=== PATIENT | female | born 1935 | race Caucasian/White ===

== ENCOUNTER 2021-08-23 17:04 | Inpatient (IN) | payer OTHER ==
[2021-08-23 19:18] LABS: ACTIVATED PTT 49.8 SECONDS (25.2-36.5)
[2021-08-23 19:19] LABS: BASO % 0.3 % (0-2.0); EOS % 0.3 % (0-4.5); HEMATOCRIT 32.3 % (32.4-45.2); HEMOGLOBIN 10.9 GM/dL (10.7-15.3); LYMPH % 23.2 % (8-40); MCH 27.7 pg (25.7-33.7); MCHC 33.8 g/dl (32.0-36.0); MEAN CELL VOLUME 81.8 fl (80-96); MEAN PLT VOLUME 9.5 fl (7.5-11.1); MONO % 4.9 % (3.8-10.2); NEUT % 71.3 % (42.8-82.8); PLATELET COUNT 104 10^3/uL (134-434); RBC 3.95 M/mm3 (3.60-5.2); RDW 26.1 % (11.6-15.6); WHITE BLOOD COUNT 7.3 K/mm3 (4.0-10.0)
[2021-08-23 19:24] LABS: CHLORIDE 98 mmol/L (98-107); SODIUM 135 mmol/L (136-145)
[2021-08-23 19:26] LABS: CALCIUM 11.3 mg/dL (8.5-10.1)
[2021-08-23 19:27] LABS: ANION GAP 8 MMOL/L (8-16); CO2 29 mmol/L (21-32); GLUCOSE,RANDOM 136 mg/dL (74-106)
[2021-08-23 19:30] LABS: CREATININE 4.3 mg/dL (0.55-1.3); SGOT/AST 23 U/L (15-37); SGPT/ALT 25 U/L (13-61)
[2021-08-23 19:31] LABS: BILIRUBIN,TOTAL 0.5 mg/dL (0.2-1)
[2021-08-23 19:33] LABS: ALK PHOS 116 U/L (45-117)
[2021-08-23 19:40] LABS: PROTHROMBIN TIME (PATIENT) 100.5 SEC (9.7-13.0)
[2021-08-23 19:43] LABS: INR 8.41 (0.83-1.09)
[2021-08-23] MEDS ORDERED: SODIUM CHLORIDE 0.9% 1000 ML INFUS.BAG IV ONE (20:15)
[2021-08-23] MEDS: INSULIN SLIDING SCALE (NOVOLOG) 1 VIAL SQ SCH ×2 (20:50→23:36)
[2021-08-23 22:51] LABS: ANISOCYTOSIS 0; MACROCYTOSIS 0; PLATELET ESTIMATE DECREASED
[2021-08-23] MEDS ORDERED: ATORVASTATIN CA 80 MG TABLET (FP) ONE (23:22)
[2021-08-23] MEDS: ATORVASTATIN CA 80 MG TABLET (FP) PO SCH (23:35)
[2021-08-23] MEDS: DEXTROSE 5%-0.45% SALINE 1,000 ML IV SCH (23:35)
[2021-08-23] MEDS: ACETAMINOPHEN 325 MG TABLET (FP) PO SCH (23:36)
[2021-08-24] MEDS: INSULIN SLIDING SCALE (NOVOLOG) 1 VIAL SQ SCH ×6 (05:23→21:56)
[2021-08-24] MEDS: DEXTROSE 5%-0.45% SALINE 1,000 ML IV SCH (05:41)
[2021-08-24] MEDS: ACETAMINOPHEN 325 MG TABLET (FP) PO SCH ×3 (07:00→21:55)
[2021-08-24] MEDS ORDERED: DEXTROSE 5%-0.45% SALINE 1,000 ML IV SCH (08:48)
[2021-08-24] MEDS ORDERED: INSULIN (LEVEMIR) 100 UNITS/ML UNITS SQ SCH (09:00)
[2021-08-24] MEDS: CYANOCOBALAMIN 1,000 MCG TABLET (FP) PO SCH (09:55)
[2021-08-24 10:24] LABS: INR 4.49 (0.83-1.09)
[2021-08-24 10:26] LABS: CHLORIDE 103 mmol/L (98-107); SODIUM 134 mmol/L (136-145)
[2021-08-24 10:42] LABS: CALCIUM 10.5 mg/dL (8.5-10.1)
[2021-08-24 10:43] LABS: ANION GAP 8 MMOL/L (8-16); CO2 23 mmol/L (21-32); GLUCOSE,RANDOM 195 mg/dL (74-106); MAGNESIUM 2.1 mg/dL (1.8-2.4)
[2021-08-24 10:46] LABS: SGOT/AST 22 U/L (15-37)
[2021-08-24 10:47] LABS: SGPT/ALT 23 U/L (13-61); TOT PROT 6.2 g/dl (6.4-8.2)
[2021-08-24 10:48] LABS: BILIRUBIN,TOTAL 0.5 mg/dL (0.2-1)
[2021-08-24 10:51] LABS: ALK PHOS 110 U/L (45-117)
[2021-08-24 10:54] LABS: ALBUMIN 2.9 g/dl (3.4-5.0); BLOOD UREA NITROGEN 111.4 mg/dL (7-18); PHOSPHOROUS 0.6 mg/dL (2.5-4.9)
[2021-08-24] MEDS ORDERED: DEXTROSE IVPB ONE (12:12)
[2021-08-24] MEDS ORDERED: WATER IVPB ONE (12:12)
[2021-08-24] MEDS ORDERED: SODIUM PHOSPHATE IVPB ONE (12:12)
[2021-08-24 12:21] LABS: BASO % 0.5 % (0-2.0); EOS % 0.9 % (0-4.5); HEMOGLOBIN 10.3 GM/dL (10.7-15.3); MCH 27.6 pg (25.7-33.7); MCHC 33.3 g/dl (32.0-36.0); MEAN CELL VOLUME 83.1 fl (80-96); MEAN PLT VOLUME 9.5 fl (7.5-11.1); MONO % 8.8 % (3.8-10.2); NEUT % 56.8 % (42.8-82.8); PLATELET COUNT 86 10^3/uL (134-434); RBC 3.73 M/mm3 (3.60-5.2); RDW 26.6 % (11.6-15.6)
[2021-08-24] MEDS: SODIUM CHLORIDE 1,000 ML IV SCH (12:34)
[2021-08-24] MEDS: NAPH,MB-DB/K PH,MBDB POWDER PACKET PO SCH ×2 (12:39→21:56)
[2021-08-24] MEDS ORDERED: SODIUM PHOSPHATE - 30 MM in DEXTROSE 5%-WATER - 500 ML IVPB ONE (13:00)
[2021-08-24 13:27] LABS: EPI CELLS 3 /uL (0-25.1); HYALINE CASTS 0 /uL (0-3.1); URINE APPEARANCE CLEAR; URINE BACTERIA 107 /uL (0-1359); URINE BILIRUBIN NEGATIVE (NEGATIVE); URINE COLOR YELLOW; URINE GLUCOSE (UA) TRACE (NEGATIVE); URINE KETONE NEGATIVE (NEGATIVE); URINE LEUK ESTERASE 1+ (NEGATIVE); URINE NITRITE NEGATIVE (NEGATIVE); URINE PROTEIN TRACE (NEGATIVE); URINE RBC 14 /uL (0-23.9); URINE UROBILINOGEN 0.2 mg/dL (0.2-1.0); URINE WBC 24 /uL (0-25.8)
[2021-08-24] MEDS: INSULIN (LEVEMIR) 100 UNITS/ML UNITS SQ SCH (21:55)
[2021-08-24] MEDS: ATORVASTATIN CA 80 MG TABLET (FP) PO SCH (21:55)
[2021-08-25] MEDS: INSULIN SLIDING SCALE (NOVOLOG) 1 VIAL SQ SCH ×5 (01:56→19:22)
[2021-08-25] MEDS: SODIUM CHLORIDE 1,000 ML IV SCH ×2 (05:04→20:33)
[2021-08-25] MEDS: ACETAMINOPHEN 325 MG TABLET (FP) PO SCH ×3 (06:37→22:02)
[2021-08-25] MEDS: INSULIN (LEVEMIR) 100 UNITS/ML UNITS SQ SCH ×3 (06:37→22:02)
[2021-08-25] MEDS: NAPH,MB-DB/K PH,MBDB POWDER PACKET PO SCH ×2 (11:28→22:04)
[2021-08-25] MEDS: CYANOCOBALAMIN 1,000 MCG TABLET (FP) PO SCH (11:28)
[2021-08-25 11:43] LABS: BASO % 0.1 % (0-2.0); HEMATOCRIT 26.2 % (32.4-45.2); LYMPH % 2.8 % (8-40); MCH 22.6 pg (25.7-33.7); MCHC 30.6 g/dl (32.0-36.0); MEAN PLT VOLUME 9.2 fl (7.5-11.1); MONO % 7.6 % (3.8-10.2); NEUT % 89.5 % (42.8-82.8); PLATELET COUNT 213 10^3/uL (134-434); RBC 3.54 M/mm3 (3.60-5.2); RDW 19.8 % (11.6-15.6); WHITE BLOOD COUNT 17.7 K/mm3 (4.0-10.0)
[2021-08-25] MEDS ORDERED: DEXTROSE 50%-WATER 25 GM/50 ML DISP.SYRIN IVPUSH ONE (12:00)
[2021-08-25 12:06] LABS: CREATININE 1.6 mg/dL (0.55-1.3)
[2021-08-25 12:07] LABS: PHOSPHOROUS 4.4 mg/dL (2.5-4.9)
[2021-08-25 12:08] LABS: BILIRUBIN,TOTAL 0.5 mg/dL (0.2-1); TOT PROT 7.2 g/dl (6.4-8.2)
[2021-08-25] MEDS ORDERED: DEXTROSE 5%-0.45% SALINE 1,000 ML IV SCH (12:30)
[2021-08-25] MEDS ORDERED: DEXTROSE 50%-WATER 25 GM/50 ML DISP.SYRIN ONE (12:33)
[2021-08-25] MEDS: PANTOPRAZOLE SODIUM 40 MG VIAL IVPUSH SCH (12:36)
[2021-08-25] MEDS ORDERED: IRON SUCROSE INJECTION 200 MG in SODIUM CHLORIDE 90 ML IVPB ONE (13:25)
[2021-08-25 13:51] LABS: ALBUMIN 1.7 g/dl (3.4-5.0); CALCIUM 8.3 mg/dL (8.5-10.1)
[2021-08-25 13:58] LABS: BLOOD UREA NITROGEN 24.8 mg/dL (7-18)
[2021-08-25] MEDS ORDERED: INSULIN SLIDING SCALE (NOVOLOG) 1 VIAL SQ SCH (16:00)
[2021-08-25] MEDS ORDERED: SODIUM CHLORIDE 0.45% 1,000 ML IV SCH (16:15)
[2021-08-25] MEDS ORDERED: PT OWN MED DRAWER 7, Y5N ONE (18:20)
[2021-08-25] MEDS: AMINO ACIDS/PROTEIN HYDROLYS 30 ML LIQUID.PKT PO SCH (18:37)
[2021-08-25 19:49] LABS: BASO % 0.2 % (0-2.0); EOS % 0.9 % (0-4.5); HEMATOCRIT 27.7 % (32.4-45.2); HEMOGLOBIN 9.2 GM/dL (10.7-15.3); LYMPH % 25.1 % (8-40); MCH 27.2 pg (25.7-33.7); MCHC 33.1 g/dl (32.0-36.0); MEAN CELL VOLUME 82.1 fl (80-96); MEAN PLT VOLUME 9.2 fl (7.5-11.1); MONO % 5.6 % (3.8-10.2); NEUT % 68.2 % (42.8-82.8); PLATELET COUNT 80 10^3/uL (134-434); RBC 3.37 M/mm3 (3.60-5.2); RDW 26.5 % (11.6-15.6); WHITE BLOOD COUNT 6.2 K/mm3 (4.0-10.0)
[2021-08-25 19:57] LABS: INR 2.07 (0.83-1.09); PROTHROMBIN TIME (PATIENT) 24.4 SEC (9.7-13.0)
[2021-08-25 20:15] LABS: CREATININE 3.4 mg/dL (0.55-1.3)
[2021-08-25 20:16] LABS: BILIRUBIN,TOTAL 0.5 mg/dL (0.2-1)
[2021-08-25 20:37] LABS: ALBUMIN 2.5 g/dl (3.4-5.0); BLOOD UREA NITROGEN 96.5 mg/dL (7-18); TOT PROT 5.2 g/dl (6.4-8.2)
[2021-08-25] MEDS ORDERED: WARFARIN NA 3 MG TABLET PO ONE (20:40)
[2021-08-25] MEDS: ATORVASTATIN CA 80 MG TABLET (FP) PO SCH (22:02)
[2021-08-26] MEDS: INSULIN SLIDING SCALE (NOVOLOG) 1 VIAL SQ SCH ×4 (00:55→18:54)
[2021-08-26] MEDS: ACETAMINOPHEN 325 MG TABLET (FP) PO SCH ×3 (06:16→21:51)
[2021-08-26] MEDS: INSULIN (LEVEMIR) 100 UNITS/ML UNITS SQ SCH (06:21)
[2021-08-26 10:02] LABS: INR 2.07 (0.83-1.09); PROTHROMBIN TIME (PATIENT) 23.3 SEC (9.7-13.0)
[2021-08-26 10:03] LABS: BASO % 0.2 % (0-2.0); EOS % 0.7 % (0-4.5); HEMATOCRIT 27.5 % (32.4-45.2); HEMOGLOBIN 9.4 GM/dL (10.7-15.3); LYMPH % 44.4 % (8-40); MCH 27.8 pg (25.7-33.7); MCHC 34.1 g/dl (32.0-36.0); MEAN CELL VOLUME 81.7 fl (80-96); MEAN PLT VOLUME 9.2 fl (7.5-11.1); NEUT % 48.7 % (42.8-82.8); PLATELET COUNT 89 10^3/uL (134-434); RBC 3.36 M/mm3 (3.60-5.2); RDW 26.8 % (11.6-15.6); WHITE BLOOD COUNT 9.7 K/mm3 (4.0-10.0)
[2021-08-26 10:38] LABS: CHLORIDE 106 mmol/L (98-107); SODIUM 138 mmol/L (136-145)
[2021-08-26 10:44] LABS: ALBUMIN 2.5 g/dl (3.4-5.0); ANION GAP 7 MMOL/L (8-16); CALCIUM 7.8 mg/dL (8.5-10.1); CO2 25 mmol/L (21-32)
[2021-08-26 10:45] LABS: BLOOD UREA NITROGEN 94.7 mg/dL (7-18)
[2021-08-26 10:47] LABS: CREATININE 3.1 mg/dL (0.55-1.3); SGOT/AST 28 U/L (15-37); SGPT/ALT 33 U/L (13-61)
[2021-08-26 10:48] LABS: PHOSPHOROUS 3.2 mg/dL (2.5-4.9)
[2021-08-26 10:49] LABS: BILIRUBIN,TOTAL 0.8 mg/dL (0.2-1); TOT PROT 5.2 g/dl (6.4-8.2)
[2021-08-26 10:50] LABS: ALK PHOS 112 U/L (45-117)
[2021-08-26 10:51] LABS: GLUCOSE,RANDOM 34 mg/dL (74-106)
[2021-08-26] MEDS ORDERED: PT OWN MED DRAWER 7, Y5N ONE (11:30)
[2021-08-26] MEDS ORDERED: DEXTROSE 50%-WATER 25 GM/50 ML DISP.SYRIN ONE (11:33)
[2021-08-26] MEDS: DEXTROSE 50%-WATER 25 GM/50 ML DISP.SYRIN IVPUSH PRN (11:36)
[2021-08-26] MEDS: AMINO ACIDS/PROTEIN HYDROLYS 30 ML LIQUID.PKT PO SCH ×2 (11:37→18:52)
[2021-08-26] MEDS: CYANOCOBALAMIN 1,000 MCG TABLET (FP) PO SCH (11:37)
[2021-08-26] MEDS ORDERED: DEXTROSE 50%-WATER 25 GM/50 ML DISP.SYRIN IVPUSH ONE (11:45)
[2021-08-26] MEDS: PANTOPRAZOLE SODIUM 40 MG VIAL IVPUSH SCH (12:34)
[2021-08-26] MEDS ORDERED: WARFARIN NA 3 MG TABLET PO ONE (18:00)
[2021-08-26] MEDS: DEXTROSE 5%-0.45% SALINE 1,000 ML IV SCH (18:07)
[2021-08-26] MEDS: ATORVASTATIN CA 80 MG TABLET (FP) PO SCH (21:51)
[2021-08-27] MEDS: INSULIN SLIDING SCALE (NOVOLOG) 1 VIAL SQ SCH ×5 (01:07→23:54)
[2021-08-27] MEDS: ACETAMINOPHEN 325 MG TABLET (FP) PO SCH ×3 (06:00→21:55)
[2021-08-27 11:11] LABS: BASO % 0.3 % (0-2.0); EOS % 1.2 % (0-4.5); HEMATOCRIT 28.5 % (32.4-45.2); HEMOGLOBIN 9.8 GM/dL (10.7-15.3); LYMPH % 19.9 % (8-40); MCH 28.6 pg (25.7-33.7); MCHC 34.5 g/dl (32.0-36.0); MEAN CELL VOLUME 82.9 fl (80-96); MEAN PLT VOLUME 9.8 fl (7.5-11.1); MONO % 6.6 % (3.8-10.2); PLATELET COUNT 71 10^3/uL (134-434); RBC 3.44 M/mm3 (3.60-5.2); RDW 26.6 % (11.6-15.6); WHITE BLOOD COUNT 5.8 K/mm3 (4.0-10.0)
[2021-08-27 11:16] LABS: INR 2.32 (0.83-1.09); PROTHROMBIN TIME (PATIENT) 27.4 SEC (9.7-13.0)
[2021-08-27] MEDS: PANTOPRAZOLE 40 MG TABLET PO SCH (11:38)
[2021-08-27] MEDS: AMINO ACIDS/PROTEIN HYDROLYS 30 ML LIQUID.PKT PO SCH ×2 (11:38→18:44)
[2021-08-27] MEDS: CYANOCOBALAMIN 1,000 MCG TABLET (FP) PO SCH (11:38)
[2021-08-27 12:23] LABS: ANISOCYTOSIS 1+; MACROCYTOSIS 0; PLATELET ESTIMATE DECREASED
[2021-08-27 14:34] LABS: ALBUMIN 2.3 g/dl (3.4-5.0); BILIRUBIN,TOTAL 0.7 mg/dL (0.2-1); BLOOD UREA NITROGEN 79.1 mg/dL (7-18); CALCIUM 7.3 mg/dL (8.5-10.1); CREATININE 2.7 mg/dL (0.55-1.3); TOT PROT 5.2 g/dl (6.4-8.2)
[2021-08-27] MEDS ORDERED: traMADol HCL 50 MG TABLET PO ONE (15:42)
[2021-08-27] MEDS ORDERED: WARFARIN NA 2.5 MG TABLET PO ONE (18:00)
[2021-08-27] MEDS ORDERED: PT OWN MED DRAWER 7, Y5N ONE (18:41)
[2021-08-27] MEDS: ATORVASTATIN CA 80 MG TABLET (FP) PO SCH (21:55)
[2021-08-27] MEDS: DEXTROSE 5%-0.45% SALINE 1,000 ML IV SCH (23:47)
[2021-08-28] MEDS: ACETAMINOPHEN 325 MG TABLET (FP) PO SCH (06:02)
[2021-08-28] MEDS: INSULIN SLIDING SCALE (NOVOLOG) 1 VIAL SQ SCH ×3 (06:03→18:17)
[2021-08-28] MEDS: AMINO ACIDS/PROTEIN HYDROLYS 30 ML LIQUID.PKT PO SCH ×2 (10:17→17:25)
[2021-08-28] MEDS: PANTOPRAZOLE 40 MG TABLET PO SCH (10:17)
[2021-08-28] MEDS: CYANOCOBALAMIN 1,000 MCG TABLET (FP) PO SCH (10:17)
[2021-08-28] MEDS: DEXTROSE 5%-0.45% SALINE 1,000 ML IV SCH (17:25)
[2021-08-28] MEDS ORDERED: WARFARIN NA 2.5 MG TABLET PO ONE (18:00)
[2021-08-28] MEDS: ATORVASTATIN CA 80 MG TABLET (FP) PO SCH (21:48)
[2021-08-29] MEDS: INSULIN SLIDING SCALE (NOVOLOG) 1 VIAL SQ SCH ×4 (00:28→18:09)
[2021-08-29] MEDS: DEXTROSE 5%-0.45% SALINE 1,000 ML IV SCH ×2 (05:39→14:43)
[2021-08-29 10:18] LABS: BASO % 0.3 % (0-2.0); EOS % 1.3 % (0-4.5); HEMATOCRIT 25.1 % (32.4-45.2); HEMOGLOBIN 8.6 GM/dL (10.7-15.3); LYMPH % 30.3 % (8-40); MCH 28.3 pg (25.7-33.7); MCHC 34.3 g/dl (32.0-36.0); MEAN CELL VOLUME 82.4 fl (80-96); MEAN PLT VOLUME 9.2 fl (7.5-11.1); MONO % 9.5 % (3.8-10.2); NEUT % 58.6 % (42.8-82.8); PLATELET COUNT 76 10^3/uL (134-434); RBC 3.05 M/mm3 (3.60-5.2); RDW 26.7 % (11.6-15.6); WHITE BLOOD COUNT 5.3 K/mm3 (4.0-10.0)
[2021-08-29 10:19] LABS: INR 2.71 (0.83-1.09)
[2021-08-29] MEDS: PANTOPRAZOLE 40 MG TABLET PO SCH (10:23)
[2021-08-29] MEDS: CYANOCOBALAMIN 1,000 MCG TABLET (FP) PO SCH (10:23)
[2021-08-29] MEDS: AMINO ACIDS/PROTEIN HYDROLYS 30 ML LIQUID.PKT PO SCH ×2 (10:23→16:45)
[2021-08-29 10:39] LABS: CALCIUM 7.3 mg/dL (8.5-10.1)
[2021-08-29 10:43] LABS: CREATININE 2.2 mg/dL (0.55-1.3)
[2021-08-29 10:51] LABS: BLOOD UREA NITROGEN 49.4 mg/dL (7-18)
[2021-08-29] MEDS ORDERED: IRON SUCROSE INJECTION 200 MG in SODIUM CHLORIDE 90 ML IVPB ONE (12:46)
[2021-08-29 15:22] VITALS: BMI 20.3
[2021-08-29] MEDS ORDERED: WARFARIN NA 2 MG TABLET PO ONE (18:00)
[2021-08-29] MEDS: ATORVASTATIN CA 80 MG TABLET (FP) PO SCH (22:13)
[2021-08-30] MEDS: INSULIN SLIDING SCALE (NOVOLOG) 1 VIAL SQ SCH ×6 (00:37→23:58)
[2021-08-30 10:00] LABS: BASO % 0.4 % (0-2.0); EOS % 2.1 % (0-4.5); HEMATOCRIT 25.7 % (32.4-45.2); HEMOGLOBIN 8.7 GM/dL (10.7-15.3); LYMPH % 28.3 % (8-40); MCH 28.3 pg (25.7-33.7); MCHC 33.9 g/dl (32.0-36.0); MEAN CELL VOLUME 83.6 fl (80-96); MEAN PLT VOLUME 9.1 fl (7.5-11.1); MONO % 11.2 % (3.8-10.2); PLATELET COUNT 78 10^3/uL (134-434); RBC 3.08 M/mm3 (3.60-5.2); RDW 26.9 % (11.6-15.6); WHITE BLOOD COUNT 4.1 K/mm3 (4.0-10.0)
[2021-08-30] MEDS: AMINO ACIDS/PROTEIN HYDROLYS 30 ML LIQUID.PKT PO SCH ×3 (10:00→17:04)
[2021-08-30 10:06] LABS: INR 2.24 (0.83-1.09); PROTHROMBIN TIME (PATIENT) 25.3 SEC (9.7-13.0)
[2021-08-30 10:24] LABS: ALBUMIN 2.1 g/dl (3.4-5.0); CALCIUM 7.5 mg/dL (8.5-10.1)
[2021-08-30 10:25] LABS: BLOOD UREA NITROGEN 40.6 mg/dL (7-18)
[2021-08-30 10:27] LABS: CREATININE 1.9 mg/dL (0.55-1.3)
[2021-08-30 10:28] LABS: BILIRUBIN,TOTAL 1.1 mg/dL (0.2-1)
[2021-08-30 10:29] LABS: TOT PROT 4.7 g/dl (6.4-8.2)
[2021-08-30] MEDS: DEXTROSE 5%-0.45% SALINE 1,000 ML IV SCH ×2 (11:35→18:18)
[2021-08-30] MEDS: PANTOPRAZOLE 40 MG TABLET PO SCH (11:35)
[2021-08-30] MEDS: CYANOCOBALAMIN 1,000 MCG TABLET (FP) PO SCH (11:35)
[2021-08-30] MEDS ORDERED: WARFARIN NA 2 MG TABLET PO ONE (18:00)
[2021-08-30] MEDS: ATORVASTATIN CA 80 MG TABLET (FP) PO SCH (22:56)
[2021-08-30] MEDS: ACETAMINOPHEN 325 MG TABLET (FP) PO PRN (23:57)
[2021-08-31] MEDS: INSULIN SLIDING SCALE (NOVOLOG) 1 VIAL SQ SCH ×3 (06:13→18:13)
[2021-08-31 09:52] LABS: INR 2.06 (0.83-1.09); PROTHROMBIN TIME (PATIENT) 24.3 SEC (9.7-13.0)
[2021-08-31] MEDS: PANTOPRAZOLE 40 MG TABLET PO SCH (12:01)
[2021-08-31] MEDS: AMINO ACIDS/PROTEIN HYDROLYS 30 ML LIQUID.PKT PO SCH ×3 (12:01→17:34)
[2021-08-31] MEDS: DIGOXIN 0.125 MG TABLET PO SCH (12:01)
[2021-08-31] MEDS: CYANOCOBALAMIN 1,000 MCG TABLET (FP) PO SCH (12:01)
[2021-08-31] MEDS: DEXTROSE 5%-0.45% SALINE 1,000 ML IV SCH ×2 (12:07→23:26)
[2021-08-31] MEDS: GABAPENTIN 100 MG CAPSULE PO SCH ×2 (15:47→21:26)
[2021-08-31] MEDS ORDERED: WARFARIN NA 2.5 MG TABLET PO ONE (18:00)
[2021-08-31] MEDS: INSULIN (LEVEMIR) 100 UNITS/ML UNITS SQ SCH (21:26)
[2021-08-31] MEDS: ATORVASTATIN CA 80 MG TABLET (FP) PO SCH (21:26)
[2021-09-01] MEDS: INSULIN SLIDING SCALE (NOVOLOG) 1 VIAL SQ SCH ×4 (00:17→17:54)
[2021-09-01] MEDS ORDERED: DEXTROSE 50%-WATER - 25 GM/50 ML VIAL ONE (05:19)
[2021-09-01] MEDS ORDERED: DEXTROSE 50%-WATER 25 GM/50 ML DISP.SYRIN ONE (05:20)
[2021-09-01] MEDS: DEXTROSE 50%-WATER 25 GM/50 ML DISP.SYRIN IVPUSH PRN (05:21)
[2021-09-01] MEDS: GABAPENTIN 100 MG CAPSULE PO SCH ×3 (05:49→22:15)
[2021-09-01] MEDS: INSULIN (LEVEMIR) 100 UNITS/ML UNITS SQ SCH (06:04)
[2021-09-01 09:38] LABS: BASO % 0.5 % (0-2.0); EOS % 2.1 % (0-4.5); HEMATOCRIT 21.9 % (32.4-45.2); HEMOGLOBIN 7.4 GM/dL (10.7-15.3); LYMPH % 27.4 % (8-40); MCH 28.4 pg (25.7-33.7); MCHC 33.8 g/dl (32.0-36.0); MEAN PLT VOLUME 8.9 fl (7.5-11.1); MONO % 13.7 % (3.8-10.2); NEUT % 56.3 % (42.8-82.8); PLATELET COUNT 91 10^3/uL (134-434); RBC 2.61 M/mm3 (3.60-5.2); RDW 27.2 % (11.6-15.6); WHITE BLOOD COUNT 4.3 K/mm3 (4.0-10.0)
[2021-09-01 09:39] LABS: INR 2.2 (0.83-1.09); PROTHROMBIN TIME (PATIENT) 24.8 SEC (9.7-13.0)
[2021-09-01 09:48] LABS: CALCIUM 7.5 mg/dL (8.5-10.1)
[2021-09-01 09:49] LABS: ALBUMIN 1.8 g/dl (3.4-5.0); BLOOD UREA NITROGEN 37.5 mg/dL (7-18)
[2021-09-01 09:52] LABS: CREATININE 1.9 mg/dL (0.55-1.3)
[2021-09-01 09:54] LABS: TOT PROT 4.6 g/dl (6.4-8.2)
[2021-09-01 10:53] LABS: ANISOCYTOSIS 2+; MACROCYTOSIS 0; PLATELET ESTIMATE DECREASED
[2021-09-01] MEDS: AMINO ACIDS/PROTEIN HYDROLYS 30 ML LIQUID.PKT PO SCH ×2 (10:58→16:58)
[2021-09-01] MEDS: DIGOXIN 0.125 MG TABLET PO SCH (10:59)
[2021-09-01] MEDS: PANTOPRAZOLE 40 MG TABLET PO SCH (11:17)
[2021-09-01] MEDS: CYANOCOBALAMIN 1,000 MCG TABLET (FP) PO SCH (11:18)
[2021-09-01] MEDS: DEXTROSE 5%-0.45% SALINE 1,000 ML IV SCH (13:01)
[2021-09-01] MEDS ORDERED: WARFARIN NA 2.5 MG TABLET PO ONE (18:00)
[2021-09-01] MEDS: ATORVASTATIN CA 80 MG TABLET (FP) PO SCH (22:15)
[2021-09-02] MEDS: INSULIN SLIDING SCALE (NOVOLOG) 1 VIAL SQ SCH ×4 (00:34→17:48)
[2021-09-02] MEDS: GABAPENTIN 100 MG CAPSULE PO SCH ×3 (05:20→21:11)
[2021-09-02 08:57] LABS: BASO % 0.5 % (0-2.0); EOS % 2.9 % (0-4.5); HEMATOCRIT 22.4 % (32.4-45.2); HEMOGLOBIN 7.5 GM/dL (10.7-15.3); LYMPH % 30.3 % (8-40); MCH 28.6 pg (25.7-33.7); MCHC 33.6 g/dl (32.0-36.0); MEAN CELL VOLUME 85.2 fl (80-96); MEAN PLT VOLUME 8.7 fl (7.5-11.1); MONO % 11.2 % (3.8-10.2); NEUT % 55.1 % (42.8-82.8); PLATELET COUNT 106 10^3/uL (134-434); RBC 2.63 M/mm3 (3.60-5.2); RDW 27.6 % (11.6-15.6); WHITE BLOOD COUNT 4.7 K/mm3 (4.0-10.0)
[2021-09-02 09:03] LABS: INR 2.11 (0.83-1.09); PROTHROMBIN TIME (PATIENT) 24.9 SEC (9.7-13.0)
[2021-09-02 09:17] LABS: CALCIUM 7.5 mg/dL (8.5-10.1)
[2021-09-02 09:18] LABS: BLOOD UREA NITROGEN 33.2 mg/dL (7-18)
[2021-09-02 09:21] LABS: CREATININE 1.9 mg/dL (0.55-1.3)
[2021-09-02] MEDS ORDERED: PT OWN MED DRAWER 7, Y5N ONE ×2 (11:47→17:38)
[2021-09-02] MEDS: AMINO ACIDS/PROTEIN HYDROLYS 30 ML LIQUID.PKT PO SCH ×2 (11:58→17:49)
[2021-09-02] MEDS: DIGOXIN 0.125 MG TABLET PO SCH (11:58)
[2021-09-02] MEDS: PANTOPRAZOLE 40 MG TABLET PO SCH (11:59)
[2021-09-02] MEDS: CYANOCOBALAMIN 1,000 MCG TABLET (FP) PO SCH (11:59)
[2021-09-02] MEDS: DEXTROSE 5%-0.45% SALINE 1,000 ML IV SCH ×2 (12:06→17:45)
[2021-09-02] MEDS: ACETAMINOPHEN 325 MG TABLET (FP) PO PRN (17:49)
[2021-09-02] MEDS ORDERED: WARFARIN NA 2.5 MG TABLET PO ONE (18:00)
[2021-09-02] MEDS: ATORVASTATIN CA 80 MG TABLET (FP) PO SCH (21:11)
[2021-09-03] MEDS: GABAPENTIN 100 MG CAPSULE PO SCH ×3 (05:07→21:06)
[2021-09-03 10:12] LABS: BASO % 0.1 % (0-2.0); HEMOGLOBIN 7.6 GM/dL (10.7-15.3); MCH 28.1 pg (25.7-33.7); MCHC 32.9 g/dl (32.0-36.0); MEAN CELL VOLUME 85.5 fl (80-96); MEAN PLT VOLUME 8.7 fl (7.5-11.1); MONO % 7.1 % (3.8-10.2); NEUT % 82.8 % (42.8-82.8); PLATELET COUNT 101 10^3/uL (134-434); RBC 2.69 M/mm3 (3.60-5.2); WHITE BLOOD COUNT 9.9 K/mm3 (4.0-10.0)
[2021-09-03 10:20] LABS: INR 2.61 (0.83-1.09); PROTHROMBIN TIME (PATIENT) 29.5 SEC (9.7-13.0)
[2021-09-03 10:39] LABS: CALCIUM 7.6 mg/dL (8.5-10.1)
[2021-09-03 10:41] LABS: BLOOD UREA NITROGEN 43.7 mg/dL (7-18)
[2021-09-03] MEDS: DIGOXIN 0.125 MG TABLET PO SCH (10:41)
[2021-09-03] MEDS: AMINO ACIDS/PROTEIN HYDROLYS 30 ML LIQUID.PKT PO SCH ×2 (10:41→16:35)
[2021-09-03] MEDS: PANTOPRAZOLE 40 MG TABLET PO SCH (10:41)
[2021-09-03] MEDS: CYANOCOBALAMIN 1,000 MCG TABLET (FP) PO SCH (10:42)
[2021-09-03 10:44] LABS: CREATININE 2.3 mg/dL (0.55-1.3)
[2021-09-03] MEDS ORDERED: INSULIN SLIDING SCALE (NOVOLOG) 1 VIAL SQ SCH ×2 (11:00)
[2021-09-03] MEDS: DEXTROSE 5%-0.45% SALINE 1,000 ML IV SCH (13:24)
[2021-09-03] MEDS: INSULIN SLIDING SCALE (NOVOLOG) 1 VIAL SQ SCH ×3 (13:25→20:51)
[2021-09-03] MEDS: SODIUM CHLORIDE 0.45% 1,000 ML IV SCH (13:57)
[2021-09-03] MEDS: WARFARIN NA 2.5 MG TABLET PO SCH (18:09)
[2021-09-03] MEDS: MULTIVITAMINS THER W-MINERALS COMBO TABLET (FP) PO SCH (18:09)
[2021-09-03] MEDS: ATORVASTATIN CA 80 MG TABLET (FP) PO SCH (21:06)
[2021-09-03] MEDS: ACETAMINOPHEN 325 MG TABLET (FP) PO PRN (21:06)
[2021-09-04] MEDS: INSULIN SLIDING SCALE (NOVOLOG) 1 VIAL SQ SCH ×6 (00:31→21:17)
[2021-09-04] MEDS: GABAPENTIN 100 MG CAPSULE PO SCH ×3 (05:35→21:17)
[2021-09-04] MEDS: AMINO ACIDS/PROTEIN HYDROLYS 30 ML LIQUID.PKT PO SCH ×2 (08:42→17:48)
[2021-09-04] MEDS: DIGOXIN 0.125 MG TABLET PO SCH (10:44)
[2021-09-04] MEDS: PANTOPRAZOLE 40 MG TABLET PO SCH (10:47)
[2021-09-04] MEDS: MULTIVITAMINS THER W-MINERALS COMBO TABLET (FP) PO SCH (10:47)
[2021-09-04] MEDS: CYANOCOBALAMIN 1,000 MCG TABLET (FP) PO SCH (10:47)
[2021-09-04] MEDS: SODIUM CHLORIDE 0.45% 1,000 ML IV SCH (10:52)
[2021-09-04 17:04] LABS: BASO % 0.2 % (0-2.0); EOS % 1.4 % (0-4.5); HEMATOCRIT 12.9 % (32.4-45.2); INR 2.1 (0.83-1.09); LYMPH % 11.4 % (8-40); MCH 28.1 pg (25.7-33.7); MCHC 32.6 g/dl (32.0-36.0); MEAN CELL VOLUME 86.2 fl (80-96); MEAN PLT VOLUME 8.9 fl (7.5-11.1); MONO % 5.3 % (3.8-10.2); NEUT % 81.7 % (42.8-82.8); PLATELET COUNT 167 10^3/uL (134-434); PROTHROMBIN TIME (PATIENT) 24.8 SEC (9.7-13.0); RDW 27.3 % (11.6-15.6); WHITE BLOOD COUNT 12.3 K/mm3 (4.0-10.0)
[2021-09-04 17:11] LABS: HEMOGLOBIN 4.2 GM/dL (10.7-15.3)
[2021-09-04 17:17] LABS: BLOOD UREA NITROGEN 49.3 mg/dL (7-18); CALCIUM 7.8 mg/dL (8.5-10.1)
[2021-09-04 17:19] LABS: CREATININE 2.3 mg/dL (0.55-1.3)
[2021-09-04 17:52] LABS: ANISOCYTOSIS 1+; MACROCYTOSIS 1+; PLATELET ESTIMATE NORMAL; ROULEAU 1+
[2021-09-04 18:13] LABS: BASO % 0.2 % (0-2.0); EOS % 1.8 % (0-4.5); HEMATOCRIT 20.1 % (32.4-45.2); MCH 28.6 pg (25.7-33.7); MCHC 33.3 g/dl (32.0-36.0); MEAN PLT VOLUME 8.8 fl (7.5-11.1); MONO % 5.2 % (3.8-10.2); NEUT % 79.8 % (42.8-82.8); PLATELET COUNT 120 10^3/uL (134-434); RBC 2.33 M/mm3 (3.60-5.2); RDW 27.6 % (11.6-15.6); WHITE BLOOD COUNT 10.8 K/mm3 (4.0-10.0)
[2021-09-04 18:24] LABS: HEMOGLOBIN 6.7 GM/dL (10.7-15.3)
[2021-09-04] MEDS: WARFARIN NA 2.5 MG TABLET PO SCH (18:33)
[2021-09-04 19:20] LABS: ALBUMIN 1.7 g/dl (3.4-5.0); BILIRUBIN,TOTAL 0.7 mg/dL (0.2-1); BLOOD UREA NITROGEN 47.7 mg/dL (7-18); CALCIUM 7.5 mg/dL (8.5-10.1); CREATININE 2.4 mg/dL (0.55-1.3); TOT PROT 4.7 g/dl (6.4-8.2)
[2021-09-04] MEDS: ATORVASTATIN CA 80 MG TABLET (FP) PO SCH (21:17)
[2021-09-05] MEDS: INSULIN SLIDING SCALE (NOVOLOG) 1 VIAL SQ SCH ×6 (00:59→21:26)
[2021-09-05] MEDS: GABAPENTIN 100 MG CAPSULE PO SCH ×3 (05:16→21:34)
[2021-09-05] MEDS ORDERED: SODIUM ZIRCONIUM CYCLOSILICATE (LOKELMA) 5 GM PACKET PO ONE (08:00)
[2021-09-05 09:24] LABS: BASO % 0.3 % (0-2.0); EOS % 1.6 % (0-4.5); HEMATOCRIT 27.6 % (32.4-45.2); HEMOGLOBIN 9.3 GM/dL (10.7-15.3); LYMPH % 14.4 % (8-40); MCH 29.6 pg (25.7-33.7); MCHC 33.9 g/dl (32.0-36.0); MEAN CELL VOLUME 87.3 fl (80-96); MEAN PLT VOLUME 8.9 fl (7.5-11.1); NEUT % 78.7 % (42.8-82.8); PLATELET COUNT 130 10^3/uL (134-434); RBC 3.16 M/mm3 (3.60-5.2); RDW 24.6 % (11.6-15.6); WHITE BLOOD COUNT 10.1 K/mm3 (4.0-10.0)
[2021-09-05 09:35] LABS: INR 2.42 (0.83-1.09); PROTHROMBIN TIME (PATIENT) 27.4 SEC (9.7-13.0)
[2021-09-05] MEDS: AMINO ACIDS/PROTEIN HYDROLYS 30 ML LIQUID.PKT PO SCH ×2 (09:52→18:18)
[2021-09-05] MEDS: CYANOCOBALAMIN 1,000 MCG TABLET (FP) PO SCH (09:53)
[2021-09-05] MEDS: DIGOXIN 0.125 MG TABLET PO SCH (09:53)
[2021-09-05] MEDS: PANTOPRAZOLE 40 MG TABLET PO SCH (09:53)
[2021-09-05] MEDS: MULTIVITAMINS THER W-MINERALS COMBO TABLET (FP) PO SCH (09:53)
[2021-09-05 10:10] LABS: BLOOD UREA NITROGEN 47.9 mg/dL (7-18); CALCIUM 7.9 mg/dL (8.5-10.1)
[2021-09-05 10:14] LABS: CREATININE 2.2 mg/dL (0.55-1.3)
[2021-09-05] MEDS ORDERED: PT OWN MED DRAWER 7, Y5N ONE (17:47)
[2021-09-05] MEDS: WARFARIN NA 2.5 MG TABLET PO SCH (19:01)
[2021-09-05] MEDS: ATORVASTATIN CA 80 MG TABLET (FP) PO SCH (21:34)
[2021-09-06] MEDS: INSULIN SLIDING SCALE (NOVOLOG) 1 VIAL SQ SCH ×6 (00:53→22:24)
[2021-09-06] MEDS: GABAPENTIN 100 MG CAPSULE PO SCH ×3 (06:10→22:24)
[2021-09-06 09:49] LABS: INR 2.35 (0.83-1.09); PROTHROMBIN TIME (PATIENT) 27.7 SEC (9.7-13.0)
[2021-09-06] MEDS: CYANOCOBALAMIN 1,000 MCG TABLET (FP) PO SCH (10:41)
[2021-09-06] MEDS: MULTIVITAMINS THER W-MINERALS COMBO TABLET (FP) PO SCH (10:41)
[2021-09-06] MEDS: PANTOPRAZOLE 40 MG TABLET PO SCH (10:41)
[2021-09-06] MEDS: DIGOXIN 0.125 MG TABLET PO SCH (10:41)
[2021-09-06] MEDS: AMINO ACIDS/PROTEIN HYDROLYS 30 ML LIQUID.PKT PO SCH ×2 (10:41→17:41)
[2021-09-06] MEDS ORDERED: PT OWN MED DRAWER 7, Y5N ONE (18:41)
[2021-09-06] MEDS: WARFARIN NA 2.5 MG TABLET PO SCH (18:46)
[2021-09-06] MEDS: ATORVASTATIN CA 80 MG TABLET (FP) PO SCH (22:24)
[2021-09-07] MEDS: INSULIN SLIDING SCALE (NOVOLOG) 1 VIAL SQ SCH ×6 (01:05→21:03)
[2021-09-07] MEDS: GABAPENTIN 100 MG CAPSULE PO SCH ×3 (06:17→21:02)
[2021-09-07] MEDS: AMINO ACIDS/PROTEIN HYDROLYS 30 ML LIQUID.PKT PO SCH ×2 (07:47→16:46)
[2021-09-07 08:21] LABS: BASO % 0.6 % (0-2.0); EOS % 3.2 % (0-4.5); HEMATOCRIT 28.9 % (32.4-45.2); HEMOGLOBIN 9.9 GM/dL (10.7-15.3); LYMPH % 23.1 % (8-40); MCH 29.9 pg (25.7-33.7); MCHC 34.1 g/dl (32.0-36.0); MEAN CELL VOLUME 87.5 fl (80-96); MEAN PLT VOLUME 8.7 fl (7.5-11.1); MONO % 8.2 % (3.8-10.2); NEUT % 64.9 % (42.8-82.8); PLATELET COUNT 149 10^3/uL (134-434); RBC 3.31 M/mm3 (3.60-5.2); RDW 24.4 % (11.6-15.6); WHITE BLOOD COUNT 5.1 K/mm3 (4.0-10.0)
[2021-09-07 08:31] LABS: INR 2.35 (0.83-1.09); PROTHROMBIN TIME (PATIENT) 26.6 SEC (9.7-13.0)
[2021-09-07] MEDS: MULTIVITAMINS THER W-MINERALS COMBO TABLET (FP) PO SCH (09:06)
[2021-09-07] MEDS: CYANOCOBALAMIN 1,000 MCG TABLET (FP) PO SCH (09:06)
[2021-09-07] MEDS: PANTOPRAZOLE 40 MG TABLET PO SCH (09:06)
[2021-09-07] MEDS: DIGOXIN 0.125 MG TABLET PO SCH (09:06)
[2021-09-07 09:33] LABS: BLOOD UREA NITROGEN 46.7 mg/dL (7-18); CALCIUM 7.7 mg/dL (8.5-10.1)
[2021-09-07] MEDS: SODIUM ZIRCONIUM CYCLOSILICATE (LOKELMA) 5 GM PACKET PO SCH (13:14)
[2021-09-07] MEDS ORDERED: PT OWN MED DRAWER 7, Y5N ONE (16:09)
[2021-09-07] MEDS: WARFARIN NA 2.5 MG TABLET PO SCH (18:50)
[2021-09-07] MEDS: ATORVASTATIN CA 80 MG TABLET (FP) PO SCH (21:02)
[2021-09-08] MEDS: INSULIN SLIDING SCALE (NOVOLOG) 1 VIAL SQ SCH ×6 (01:12→21:18)
[2021-09-08] MEDS: GABAPENTIN 100 MG CAPSULE PO SCH ×3 (06:07→21:18)
[2021-09-08 09:27] LABS: BASO % 0.6 % (0-2.0); EOS % 2.7 % (0-4.5); HEMOGLOBIN 8.8 GM/dL (10.7-15.3); LYMPH % 22.5 % (8-40); MCH 29.7 pg (25.7-33.7); MCHC 33.8 g/dl (32.0-36.0); MEAN CELL VOLUME 87.7 fl (80-96); MEAN PLT VOLUME 8.8 fl (7.5-11.1); MONO % 9.2 % (3.8-10.2); PLATELET COUNT 142 10^3/uL (134-434); RBC 2.96 M/mm3 (3.60-5.2); RDW 24.2 % (11.6-15.6); WHITE BLOOD COUNT 5.8 K/mm3 (4.0-10.0)
[2021-09-08 09:29] LABS: INR 2.99 (0.83-1.09); PROTHROMBIN TIME (PATIENT) 35.4 SEC (9.7-13.0)
[2021-09-08] MEDS: AMINO ACIDS/PROTEIN HYDROLYS 30 ML LIQUID.PKT PO SCH ×2 (10:22→18:11)
[2021-09-08] MEDS: DIGOXIN 0.125 MG TABLET PO SCH (10:22)
[2021-09-08] MEDS: PANTOPRAZOLE 40 MG TABLET PO SCH (10:22)
[2021-09-08] MEDS: SODIUM ZIRCONIUM CYCLOSILICATE (LOKELMA) 5 GM PACKET PO SCH (10:22)
[2021-09-08] MEDS: CYANOCOBALAMIN 1,000 MCG TABLET (FP) PO SCH (10:22)
[2021-09-08 10:26] LABS: ANISOCYTOSIS 1+; MACROCYTOSIS 0; PLATELET ESTIMATE DECREASED
[2021-09-08] MEDS: MULTIVITAMINS THER W-MINERALS COMBO TABLET (FP) PO SCH (10:26)
[2021-09-08] MEDS ORDERED: IRON SUCROSE INJECTION 200 MG in SODIUM CHLORIDE 90 ML IVPB ONE (12:44)
[2021-09-08] MEDS: ATORVASTATIN CA 80 MG TABLET (FP) PO SCH (21:18)
[2021-09-09] MEDS: INSULIN SLIDING SCALE (NOVOLOG) 1 VIAL SQ SCH ×6 (01:17→22:42)
[2021-09-09] MEDS: GABAPENTIN 100 MG CAPSULE PO SCH ×3 (06:18→22:42)
[2021-09-09] MEDS: AMINO ACIDS/PROTEIN HYDROLYS 30 ML LIQUID.PKT PO SCH ×2 (08:04→16:44)
[2021-09-09] MEDS: PANTOPRAZOLE 40 MG TABLET PO SCH (10:25)
[2021-09-09] MEDS: SODIUM ZIRCONIUM CYCLOSILICATE (LOKELMA) 5 GM PACKET PO SCH (10:25)
[2021-09-09] MEDS: MULTIVITAMINS THER W-MINERALS COMBO TABLET (FP) PO SCH (10:25)
[2021-09-09] MEDS: CYANOCOBALAMIN 1,000 MCG TABLET (FP) PO SCH (10:25)
[2021-09-09] MEDS: DIGOXIN 0.125 MG TABLET PO SCH (10:26)
[2021-09-09 11:13] LABS: BASO % 0.3 % (0-2.0); EOS % 2.6 % (0-4.5); HEMATOCRIT 25.9 % (32.4-45.2); HEMOGLOBIN 8.6 GM/dL (10.7-15.3); LYMPH % 17.8 % (8-40); MCH 28.9 pg (25.7-33.7); MEAN CELL VOLUME 87.6 fl (80-96); MEAN PLT VOLUME 8.2 fl (7.5-11.1); MONO % 8.1 % (3.8-10.2); NEUT % 71.2 % (42.8-82.8); PLATELET COUNT 152 10^3/uL (134-434); RBC 2.96 M/mm3 (3.60-5.2); RDW 23.6 % (11.6-15.6); WHITE BLOOD COUNT 5.7 K/mm3 (4.0-10.0)
[2021-09-09 11:16] LABS: INR 2.74 (0.83-1.09)
[2021-09-09 11:34] LABS: BLOOD UREA NITROGEN 59.4 mg/dL (7-18); CALCIUM 7.7 mg/dL (8.5-10.1)
[2021-09-09 11:38] LABS: CREATININE 1.9 mg/dL (0.55-1.3)
[2021-09-09] MEDS: ATORVASTATIN CA 80 MG TABLET (FP) PO SCH (22:42)
[2021-09-10] MEDS: INSULIN SLIDING SCALE (NOVOLOG) 1 VIAL SQ SCH ×6 (01:12→21:08)
[2021-09-10] MEDS: GABAPENTIN 100 MG CAPSULE PO SCH ×3 (06:03→21:09)
[2021-09-10] MEDS: PANTOPRAZOLE 40 MG TABLET PO SCH (10:26)
[2021-09-10] MEDS: MULTIVITAMINS THER W-MINERALS COMBO TABLET (FP) PO SCH (10:26)
[2021-09-10] MEDS: CYANOCOBALAMIN 1,000 MCG TABLET (FP) PO SCH (10:26)
[2021-09-10] MEDS: DIGOXIN 0.125 MG TABLET PO SCH (10:26)
[2021-09-10] MEDS: AMINO ACIDS/PROTEIN HYDROLYS 30 ML LIQUID.PKT PO SCH ×2 (10:27→16:44)
[2021-09-10 10:41] LABS: BASO % 0.6 % (0-2.0); EOS % 3.3 % (0-4.5); HEMATOCRIT 27.8 % (32.4-45.2); HEMOGLOBIN 9.5 GM/dL (10.7-15.3); LYMPH % 19.1 % (8-40); MCHC 34.3 g/dl (32.0-36.0); MEAN CELL VOLUME 87.5 fl (80-96); MEAN PLT VOLUME 8.3 fl (7.5-11.1); MONO % 7.5 % (3.8-10.2); NEUT % 69.5 % (42.8-82.8); PLATELET COUNT 185 10^3/uL (134-434); RBC 3.17 M/mm3 (3.60-5.2); RDW 23.5 % (11.6-15.6); WHITE BLOOD COUNT 5.6 K/mm3 (4.0-10.0)
[2021-09-10 10:49] LABS: INR 1.86 (0.83-1.09); PROTHROMBIN TIME (PATIENT) 21.9 SEC (9.7-13.0)
[2021-09-10 11:02] LABS: CALCIUM 8.1 mg/dL (8.5-10.1)
[2021-09-10 11:03] LABS: BLOOD UREA NITROGEN 61.6 mg/dL (7-18)
[2021-09-10 11:06] LABS: CREATININE 1.7 mg/dL (0.55-1.3)
[2021-09-10] MEDS ORDERED: PT OWN MED DRAWER 7, Y5N ONE (13:34)
[2021-09-10] MEDS: ATORVASTATIN CA 80 MG TABLET (FP) PO SCH (21:09)
[2021-09-11] MEDS: INSULIN SLIDING SCALE (NOVOLOG) 1 VIAL SQ SCH ×6 (01:58→21:10)
[2021-09-11] MEDS: GABAPENTIN 100 MG CAPSULE PO SCH ×3 (06:11→21:10)
[2021-09-11] MEDS: DIGOXIN 0.125 MG TABLET PO SCH ×2 (08:17→09:24)
[2021-09-11] MEDS: MULTIVITAMINS THER W-MINERALS COMBO TABLET (FP) PO SCH ×2 (08:17→09:25)
[2021-09-11] MEDS: AMINO ACIDS/PROTEIN HYDROLYS 30 ML LIQUID.PKT PO SCH ×2 (08:17→17:38)
[2021-09-11] MEDS: CYANOCOBALAMIN 1,000 MCG TABLET (FP) PO SCH ×2 (08:18→09:24)
[2021-09-11] MEDS: PANTOPRAZOLE 40 MG TABLET PO SCH ×2 (08:18→09:25)
[2021-09-11 10:19] LABS: BASO % 0.7 % (0-2.0); EOS % 2.7 % (0-4.5); HEMATOCRIT 27.5 % (32.4-45.2); HEMOGLOBIN 9.4 GM/dL (10.7-15.3); LYMPH % 21.4 % (8-40); MCH 30.2 pg (25.7-33.7); MCHC 34.3 g/dl (32.0-36.0); MEAN CELL VOLUME 88.2 fl (80-96); MEAN PLT VOLUME 8.5 fl (7.5-11.1); MONO % 8.5 % (3.8-10.2); NEUT % 66.7 % (42.8-82.8); PLATELET COUNT 226 10^3/uL (134-434); RBC 3.12 M/mm3 (3.60-5.2); RDW 23.1 % (11.6-15.6); WHITE BLOOD COUNT 6.4 K/mm3 (4.0-10.0)
[2021-09-11 13:13] LABS: ANISOCYTOSIS 1+; MACROCYTOSIS 1+; PLATELET ESTIMATE NORMAL
[2021-09-11] MEDS: ATORVASTATIN CA 80 MG TABLET (FP) PO SCH (21:10)
[2021-09-11] MEDS ORDERED: BENZOCAINE/MENTHOL 1 EACH LOZENGE MM PRN ×2 (21:24→22:02)
[2021-09-12] MEDS: INSULIN SLIDING SCALE (NOVOLOG) 1 VIAL SQ SCH ×6 (01:04→20:59)
[2021-09-12] MEDS: GABAPENTIN 100 MG CAPSULE PO SCH ×3 (06:06→21:00)
[2021-09-12] MEDS: PANTOPRAZOLE 40 MG TABLET PO SCH (10:07)
[2021-09-12] MEDS: DIGOXIN 0.125 MG TABLET PO SCH (10:07)
[2021-09-12] MEDS: CYANOCOBALAMIN 1,000 MCG TABLET (FP) PO SCH (10:09)
[2021-09-12] MEDS: MULTIVITAMINS THER W-MINERALS COMBO TABLET (FP) PO SCH (10:09)
[2021-09-12] MEDS: AMINO ACIDS/PROTEIN HYDROLYS 30 ML LIQUID.PKT PO SCH ×2 (10:09→16:53)
[2021-09-12 11:43] LABS: BASO % 0.5 % (0-2.0); EOS % 2.4 % (0-4.5); HEMATOCRIT 28.7 % (32.4-45.2); HEMOGLOBIN 9.5 GM/dL (10.7-15.3); LYMPH % 10.6 % (8-40); MCH 29.5 pg (25.7-33.7); MCHC 33.1 g/dl (32.0-36.0); MEAN CELL VOLUME 88.9 fl (80-96); MEAN PLT VOLUME 8.5 fl (7.5-11.1); MONO % 6.7 % (3.8-10.2); NEUT % 79.8 % (42.8-82.8); PLATELET COUNT 222 10^3/uL (134-434); RBC 3.23 M/mm3 (3.60-5.2); RDW 23.2 % (11.6-15.6); WHITE BLOOD COUNT 7.9 K/mm3 (4.0-10.0)
[2021-09-12 14:47] LABS: CALCIUM 7.8 mg/dL (8.5-10.1)
[2021-09-12 14:48] LABS: ALBUMIN 1.7 g/dl (3.4-5.0)
[2021-09-12 14:51] LABS: CREATININE 1.8 mg/dL (0.55-1.3)
[2021-09-12 14:53] LABS: BILIRUBIN,TOTAL 0.8 mg/dL (0.2-1)
[2021-09-12] MEDS ORDERED: LOPERAMIDE HCL 2 MG CAPSULE PO ONE (15:23)
[2021-09-12] MEDS ORDERED: LOPERAMIDE HCL 2 MG CAPSULE PO PRN (15:24)
[2021-09-12] MEDS: ATORVASTATIN CA 80 MG TABLET (FP) PO SCH (21:00)
[2021-09-12] MEDS: NYSTATIN POWDER 100,000 UNITS/GM - 15 GM TOPICAL POWDER TP SCH (21:02)
[2021-09-13] MEDS: INSULIN SLIDING SCALE (NOVOLOG) 1 VIAL SQ SCH ×4 (01:30→13:59)
[2021-09-13] MEDS: GABAPENTIN 100 MG CAPSULE PO SCH ×2 (06:01→14:00)
[2021-09-13] MEDS: PANTOPRAZOLE 40 MG TABLET PO SCH (09:46)
[2021-09-13] MEDS: MULTIVITAMINS THER W-MINERALS COMBO TABLET (FP) PO SCH (09:46)
[2021-09-13] MEDS: AMINO ACIDS/PROTEIN HYDROLYS 30 ML LIQUID.PKT PO SCH (09:47)
[2021-09-13] MEDS: DIGOXIN 0.125 MG TABLET PO SCH (09:47)
[2021-09-13] MEDS: CYANOCOBALAMIN 1,000 MCG TABLET (FP) PO SCH (09:47)
[2021-09-13] MEDS: NYSTATIN POWDER 100,000 UNITS/GM - 15 GM TOPICAL POWDER TP SCH (09:48)
[2021-09-13 15:10] VITALS: TEMP 98.3
[2021-09-13 15:44] VITALS: BP 128/48; PULSE 66
== END 2021-09-13 15:14 | DRG 813 ==
LOC: JER 17:04 → JERBED 19:48 → J5S 08-24 04:21
PROVIDERS: ADMIT Internal Medicine; ATTEND Internal Medicine
PROC: 30233L1 Transfusion of Nonautologous Fresh Plasma into Peripheral Vein, Percutaneous Approach (ICD-10-PCS; principal; 2021-08-23)
PROC: 30233N1 Transfusion of Nonautologous Red Blood Cells into Peripheral Vein, Percutaneous Approach (ICD-10-PCS; 2021-09-04)
PROC: 30233K1 Transfusion of Nonautologous Frozen Plasma into Peripheral Vein, Percutaneous Approach (ICD-10-PCS; 2021-09-04)
DX: D68.32 Hemorrhagic disorder due to extrinsic circulating anticoagulants (principal); I13.0 Hypertensive heart and chronic kidney disease with heart failure and stage 1 through stage 4 chronic kidney disease, or unspecified chronic kidney disease; I48.20 Chronic atrial fibrillation, unspecified; N17.9 Acute kidney failure, unspecified; K92.2 Gastrointestinal hemorrhage, unspecified; E11.649 Type 2 diabetes mellitus with hypoglycemia without coma; Z79.01 Long term (current) use of anticoagulants; N18.9 Chronic kidney disease, unspecified; I50.9 Heart failure, unspecified; N32.81 Overactive bladder; K21.9 Gastro-esophageal reflux disease without esophagitis; E78.5 Hyperlipidemia, unspecified; E86.0 Dehydration; E83.51 Hypocalcemia; D69.6 Thrombocytopenia, unspecified; Z79.4 Long term (current) use of insulin; I95.9 Hypotension, unspecified; T45.515A Adverse effect of anticoagulants, initial encounter; E83.39 Other disorders of phosphorus metabolism; Z88.0 Allergy status to penicillin; K59.00 Constipation, unspecified; D50.9 Iron deficiency anemia, unspecified; E88.09 Other disorders of plasma-protein metabolism, not elsewhere classified; E11.51 Type 2 diabetes mellitus with diabetic peripheral angiopathy without gangrene
CPT/HCPCS: 36415; 36430; 71045-TC-FY; 73630-TC-LT; 73630-TC-RT-FY; 74181-TC; 76700-TC; 76775-TC; 80048; 80053; 80162; 81003; 82272; 82436; 82570; 82607; 82728; 82746; 82784; 82962; 82977; 83540; 83550; 83735; 84100; 84133; 84155; 84165; 84300; 84439; 84443; 85025; 85610; 85730; 86140; 86334; 86850; 86900; 86901; 86922; 87040; 93005; 93010; 97116-GP; 97162-GP; 99285-25; C9803; J1756; P9017; P9058; U0003; U0005

== ENCOUNTER 2021-10-11 14:35 | Observation (INO) | payer OTHER ==
[2021-10-11 15:37] VITALS: BMI 22.8
[2021-10-11 17:43] LABS: BASO % 0.6 % (0-2.0); EOS % 1.1 % (0-4.5); HEMATOCRIT 27.5 % (32.4-45.2); HEMOGLOBIN 8.9 GM/dL (10.7-15.3); LYMPH % 36.2 % (8-40); MCH 30.7 pg (25.7-33.7); MCHC 32.4 g/dl (32.0-36.0); MEAN CELL VOLUME 94.7 fl (80-96); MEAN PLT VOLUME 8.8 fl (7.5-11.1); MONO % 7.6 % (3.8-10.2); NEUT % 54.5 % (42.8-82.8); PLATELET COUNT 117 10^3/uL (134-434); RDW 19.7 % (11.6-15.6); WHITE BLOOD COUNT 5.4 K/mm3 (4.0-10.0)
[2021-10-11 17:50] LABS: EPI CELLS 22 /uL (0-25.1); HYALINE CASTS 4 /uL (0-3.1); URINE APPEARANCE CLEAR; URINE BACTERIA 17 /uL (0-1359); URINE BILIRUBIN NEGATIVE (NEGATIVE); URINE COLOR YELLOW; URINE GLUCOSE (UA) NEGATIVE (NEGATIVE); URINE KETONE NEGATIVE (NEGATIVE); URINE LEUK ESTERASE TRACE (NEGATIVE); URINE NITRITE NEGATIVE (NEGATIVE); URINE PROTEIN 1+ (NEGATIVE); URINE RBC 29 /uL (0-23.9); URINE UROBILINOGEN 0.2 mg/dL (0.2-1.0); URINE WBC 10 /uL (0-25.8)
[2021-10-11 18:02] LABS: ACTIVATED PTT 25.2 SECONDS (25.2-36.5); INR 1.01 (0.83-1.09); PROTHROMBIN TIME (PATIENT) 11.6 SEC (9.7-13.0)
[2021-10-11 18:28] LABS: CALCIUM 9.1 mg/dL (8.5-10.1); MAGNESIUM 2.3 mg/dL (1.8-2.4)
[2021-10-11 18:29] LABS: BLOOD UREA NITROGEN 31.2 mg/dL (7-18)
[2021-10-11 18:31] LABS: CREATININE 1.6 mg/dL (0.55-1.3)
[2021-10-11 18:34] LABS: BILIRUBIN,TOTAL 1.1 mg/dL (0.2-1); TOT PROT 5.8 g/dl (6.4-8.2)
[2021-10-11 18:37] LABS: N-TERMINAL BNP 8464.4 pg/ml (5-450)
[2021-10-11] MEDS ORDERED: ACETAMINOPHEN 325 MG TABLET (FP) PO PRN (20:44)
[2021-10-11] MEDS ORDERED: PANTOPRAZOLE 40 MG TABLET ONE (21:05)
[2021-10-11] MEDS: INSULIN SLIDING SCALE (NOVOLOG) 1 VIAL SQ SCH (21:12)
[2021-10-11] MEDS ORDERED: MELATONIN 5 MG TABLETS PO PRN (21:39)
[2021-10-11] MEDS: PANTOPRAZOLE 40 MG TABLET PO SCH (21:42)
[2021-10-11] MEDS: CYANOCOBALAMIN 1,000 MCG TABLET (FP) PO SCH (21:42)
[2021-10-11] MEDS ORDERED: SENNOSIDES 8.6MG TABLET (FP) PO ONE (22:35)
[2021-10-11] MEDS ORDERED: GABAPENTIN 100 MG CAPSULE ONE (22:36)
[2021-10-11] MEDS ORDERED: ATORVASTATIN CA 80 MG TABLET (FP) ONE (22:36)
[2021-10-11] MEDS: GABAPENTIN 100 MG CAPSULE PO SCH (22:43)
[2021-10-11] MEDS: SENNOSIDES 8.6MG TABLET (FP) PO SCH (22:43)
[2021-10-11] MEDS: ATORVASTATIN CA 80 MG TABLET (FP) PO SCH (22:43)
[2021-10-12 07:20] LABS: BASO % 0.8 % (0-2.0); EOS % 2.2 % (0-4.5); HEMATOCRIT 26.1 % (32.4-45.2); HEMOGLOBIN 8.6 GM/dL (10.7-15.3); LYMPH % 41.4 % (8-40); MCH 31.1 pg (25.7-33.7); MEAN CELL VOLUME 94.3 fl (80-96); MEAN PLT VOLUME 8.5 fl (7.5-11.1); MONO % 10.2 % (3.8-10.2); NEUT % 45.4 % (42.8-82.8); PLATELET COUNT 107 10^3/uL (134-434); RBC 2.77 M/mm3 (3.60-5.2); RDW 19.5 % (11.6-15.6); WHITE BLOOD COUNT 4.1 K/mm3 (4.0-10.0)
[2021-10-12] MEDS: GABAPENTIN 100 MG CAPSULE PO SCH ×3 (07:56→21:29)
[2021-10-12] MEDS: INSULIN SLIDING SCALE (NOVOLOG) 1 VIAL SQ SCH ×3 (08:56→16:18)
[2021-10-12] MEDS ORDERED: metoPROLOL SUCCINATE 25 MG TAB.SR.24H (FP) ONE (09:15)
[2021-10-12] MEDS ORDERED: PANTOPRAZOLE 40 MG TABLET ONE (09:15)
[2021-10-12] MEDS ORDERED: DIGOXIN 0.125 MG TABLET ONE (09:15)
[2021-10-12] MEDS ORDERED: DOCUSATE SODIUM 100 MG CAPSULE (FP) PO ONE (09:15)
[2021-10-12] MEDS ORDERED: GABAPENTIN 100 MG CAPSULE ONE (09:15)
[2021-10-12] MEDS ORDERED: IRON SUCROSE INJECTION 200 MG in SODIUM CHLORIDE 90 ML IVPB ONE (10:00)
[2021-10-12] MEDS: metoPROLOL SUCCINATE 25 MG TAB.SR.24H (FP) PO SCH (10:26)
[2021-10-12] MEDS: AMINO ACIDS/PROTEIN HYDROLYS 30 ML LIQUID.PKT PO SCH ×2 (10:27→17:59)
[2021-10-12] MEDS: DIGOXIN 0.125 MG TABLET PO SCH (10:27)
[2021-10-12] MEDS: PANTOPRAZOLE 40 MG TABLET PO SCH (10:27)
[2021-10-12] MEDS: CYANOCOBALAMIN 1,000 MCG TABLET (FP) PO SCH (10:28)
[2021-10-12] MEDS: DOCUSATE SODIUM 100 MG CAPSULE (FP) PO SCH (10:29)
[2021-10-12] MEDS: SENNOSIDES 8.6MG TABLET (FP) PO SCH (21:30)
[2021-10-12] MEDS: ATORVASTATIN CA 80 MG TABLET (FP) PO SCH (21:30)
[2021-10-13] MEDS: GABAPENTIN 100 MG CAPSULE PO SCH (05:45)
[2021-10-13] MEDS: INSULIN SLIDING SCALE (NOVOLOG) 1 VIAL SQ SCH ×2 (06:04→12:03)
[2021-10-13 06:34] VITALS: PULSE 62
[2021-10-13] MEDS: PANTOPRAZOLE 40 MG TABLET PO SCH (09:46)
[2021-10-13] MEDS: CYANOCOBALAMIN 1,000 MCG TABLET (FP) PO SCH (09:46)
[2021-10-13] MEDS: DOCUSATE SODIUM 100 MG CAPSULE (FP) PO SCH (09:46)
[2021-10-13] MEDS: AMINO ACIDS/PROTEIN HYDROLYS 30 ML LIQUID.PKT PO SCH (09:46)
[2021-10-13] MEDS: metoPROLOL SUCCINATE 25 MG TAB.SR.24H (FP) PO SCH (09:46)
[2021-10-13] MEDS: DIGOXIN 0.125 MG TABLET PO SCH (12:27)
[2021-10-13 12:50] VITALS: BP 139/53; TEMP 98.1
[2021-10-13] MEDS ORDERED: WARFARIN NA 2.5 MG TABLET PO SCH (18:00)
== END 2021-10-13 14:15 ==
LOC: JER 14:35 → INTOOBSV 20:06 → UNDOADMOB 20:06 → JERBED 20:06 → J7W 10-12 11:53
PROVIDERS: ADMIT Internal Medicine; ATTEND Internal Medicine
PROC: 3E033GC Introduction of Other Therapeutic Substance into Peripheral Vein, Percutaneous Approach (ICD-10-PCS; principal; 2021-10-12)
DX: S06.0X9A Concussion with loss of consciousness of unspecified duration, initial encounter (principal); I11.0 Hypertensive heart disease with heart failure; D50.9 Iron deficiency anemia, unspecified; E78.5 Hyperlipidemia, unspecified; M31.9 Necrotizing vasculopathy, unspecified; I48.91 Unspecified atrial fibrillation; F03.90 Unspecified dementia, unspecified severity, without behavioral disturbance, psychotic disturbance, mood disturbance, and anxiety; Z88.0 Allergy status to penicillin; R55 Syncope and collapse; W17.89XD Other fall from one level to another, subsequent encounter; R05.9 Cough, unspecified; E11.59 Type 2 diabetes mellitus with other circulatory complications; R42 Dizziness and giddiness; R26.2 Difficulty in walking, not elsewhere classified; N19 Unspecified kidney failure; E11.51 Type 2 diabetes mellitus with diabetic peripheral angiopathy without gangrene; R53.2 Functional quadriplegia; I95.9 Hypotension, unspecified; M62.81 Muscle weakness (generalized); R63.0 Anorexia; G57.93 Unspecified mononeuropathy of bilateral lower limbs; D69.6 Thrombocytopenia, unspecified
CPT/HCPCS: 36415; 70450-TC; 71046-TC-FY; 72125-TC; 72170-TC-FY; 73030-TC-LT-FY; 80053; 81003; 82550; 82728; 82962; 83540; 83550; 83735; 83880; 84484; 85025; 85610; 85730; 87086; 93005; 93010; 93971-TC; 96365; 97116-GP; 97162-GP; 99285-25; C9803; G0378; J1756; U0003; U0005

== ENCOUNTER 2022-01-05 08:12 | Inpatient (IN) | payer OTHER ==
[2022-01-05] MEDS ORDERED: ACETAMINOPHEN 500 MG TABLET (FP) PO ONE (08:41)
[2022-01-05 09:40] LABS: BASO % 0.8 % (0-2.0); EOS % 0.5 % (0-4.5); HEMATOCRIT 25.3 % (32.4-45.2); HEMOGLOBIN 8.1 GM/dL (10.7-15.3); LYMPH % 17.1 % (8-40); MCH 29.2 pg (25.7-33.7); MEAN CELL VOLUME 91.3 fl (80-96); MEAN PLT VOLUME 8.8 fl (7.5-11.1); MONO % 7.2 % (3.8-10.2); NEUT % 74.4 % (42.8-82.8); PLATELET COUNT 93 10^3/uL (134-434); RBC 2.77 M/mm3 (3.60-5.2); RDW 15.9 % (11.6-15.6); WHITE BLOOD COUNT 3.6 K/mm3 (4.0-10.0)
[2022-01-05] MEDS ORDERED: ACETAMINOPHEN 325 MG TABLET (FP) ONE (09:45)
[2022-01-05 09:47] LABS: INR 2.03 (0.83-1.09); PROTHROMBIN TIME (PATIENT) 23.5 SEC (9.7-13.0)
[2022-01-05 09:50] LABS: ACTIVATED PTT 34.5 SECONDS (25.2-36.5)
[2022-01-05 10:06] LABS: BLOOD UREA NITROGEN 35.6 mg/dL (7-18); CALCIUM 8.3 mg/dL (8.5-10.1); MAGNESIUM 2.2 mg/dL (1.8-2.4)
[2022-01-05 10:07] LABS: ALBUMIN 3.1 g/dl (3.4-5.0)
[2022-01-05 10:09] LABS: CREATININE 1.4 mg/dL (0.55-1.3)
[2022-01-05 10:10] LABS: PHOSPHOROUS 3.5 mg/dL (2.5-4.9)
[2022-01-05 10:11] LABS: BILIRUBIN,TOTAL 0.8 mg/dL (0.2-1); TOT PROT 6.2 g/dl (6.4-8.2)
[2022-01-05 10:15] LABS: N-TERMINAL BNP 4055.1 pg/ml (5-450)
[2022-01-05] MEDS ORDERED: ACETAMINOPHEN 325 MG TABLET (FP) PO PRN (12:39)
[2022-01-05] MEDS ORDERED: FUROSEMIDE 40 MG/4 ML INJECTABLE VIAL IVPUSH ONE (13:30)
[2022-01-05] MEDS ORDERED: DIGOXIN 0.125 MG TABLET ONE (13:38)
[2022-01-05] MEDS ORDERED: PANTOPRAZOLE 40 MG TABLET ONE (13:38)
[2022-01-05] MEDS ORDERED: FUROSEMIDE 40 MG/4 ML INJECTABLE VIAL ONE (13:39)
[2022-01-05] MEDS ORDERED: metoPROLOL SUCCINATE 25 MG TAB.SR.24H (FP) ONE (13:39)
[2022-01-05] MEDS: metoPROLOL SUCCINATE 25 MG TAB.SR.24H (FP) PO SCH (13:45)
[2022-01-05] MEDS: CYANOCOBALAMIN 1,000 MCG TABLET (FP) PO SCH (13:45)
[2022-01-05] MEDS: PANTOPRAZOLE 40 MG TABLET PO SCH (13:45)
[2022-01-05] MEDS: DIGOXIN 0.125 MG TABLET PO SCH (13:45)
[2022-01-05 16:45] LABS: EPI CELLS 3 /uL (0-25.1); HYALINE CASTS 0 /uL (0-3.1); URINE APPEARANCE CLEAR; URINE BACTERIA 1002 /uL (0-1359); URINE BILIRUBIN NEGATIVE (NEGATIVE); URINE COLOR YELLOW; URINE GLUCOSE (UA) NEGATIVE (NEGATIVE); URINE KETONE NEGATIVE (NEGATIVE); URINE LEUK ESTERASE TRACE (NEGATIVE); URINE NITRITE NEGATIVE (NEGATIVE); URINE PROTEIN NEGATIVE (NEGATIVE); URINE RBC 4 /uL (0-23.9); URINE UROBILINOGEN 0.2 mg/dL (0.2-1.0); URINE WBC 19 /uL (0-25.8)
[2022-01-05] MEDS: INSULIN SLIDING SCALE (NOVOLOG) 1 VIAL SQ SCH (17:38)
[2022-01-05] MEDS: GABAPENTIN 100 MG CAPSULE PO SCH ×2 (17:38→21:26)
[2022-01-05] MEDS ORDERED: WARFARIN NA 3 MG TABLET PO SCH (18:00)
[2022-01-05 18:55] VITALS: BMI 21.8
[2022-01-05] MEDS: SENNOSIDES 8.6MG TABLET (FP) PO SCH (21:26)
[2022-01-05] MEDS: DOCUSATE SODIUM 100 MG CAPSULE (FP) PO SCH (21:26)
[2022-01-05] MEDS: ATORVASTATIN CA 80 MG TABLET (FP) PO SCH (21:26)
[2022-01-05 21:56] LABS: INR 2.1 (0.83-1.09); PROTHROMBIN TIME (PATIENT) 24.3 SEC (9.7-13.0)
[2022-01-06] MEDS: GABAPENTIN 100 MG CAPSULE PO SCH ×3 (05:53→21:07)
[2022-01-06] MEDS: INSULIN SLIDING SCALE (NOVOLOG) 1 VIAL SQ SCH ×3 (06:02→18:03)
[2022-01-06 07:31] LABS: BASO % 0.9 % (0-2.0); EOS % 0.8 % (0-4.5); HEMATOCRIT 25.5 % (32.4-45.2); HEMOGLOBIN 8.4 GM/dL (10.7-15.3); LYMPH % 22.1 % (8-40); MCH 29.8 pg (25.7-33.7); MCHC 32.9 g/dl (32.0-36.0); MEAN CELL VOLUME 90.4 fl (80-96); MEAN PLT VOLUME 9.2 fl (7.5-11.1); MONO % 8.4 % (3.8-10.2); NEUT % 67.8 % (42.8-82.8); PLATELET COUNT 95 10^3/uL (134-434); RBC 2.82 M/mm3 (3.60-5.2); RDW 16.2 % (11.6-15.6)
[2022-01-06 07:37] LABS: ALBUMIN 3.3 g/dl (3.4-5.0); CALCIUM 8.4 mg/dL (8.5-10.1)
[2022-01-06 07:38] LABS: BLOOD UREA NITROGEN 33.8 mg/dL (7-18)
[2022-01-06 07:41] LABS: CREATININE 1.4 mg/dL (0.55-1.3)
[2022-01-06 07:42] LABS: TOT PROT 6.3 g/dl (6.4-8.2)
[2022-01-06 07:43] LABS: BILIRUBIN,TOTAL 1.1 mg/dL (0.2-1)
[2022-01-06] MEDS ORDERED: IRON SUCROSE INJECTION 300 MG in SODIUM CHLORIDE 235 ML IVPB ONE (10:00)
[2022-01-06] MEDS: DIGOXIN 0.125 MG TABLET PO SCH (10:10)
[2022-01-06] MEDS: PANTOPRAZOLE 40 MG TABLET PO SCH (10:10)
[2022-01-06] MEDS: metoPROLOL SUCCINATE 25 MG TAB.SR.24H (FP) PO SCH (10:10)
[2022-01-06] MEDS: FUROSEMIDE 40 MG/4 ML INJECTABLE VIAL IVPUSH SCH (10:11)
[2022-01-06] MEDS: CYANOCOBALAMIN 1,000 MCG TABLET (FP) PO SCH (10:45)
[2022-01-06 13:35] LABS: INR 1.31 (0.83-1.09); PROTHROMBIN TIME (PATIENT) 15.1 SEC (9.7-13.0)
[2022-01-06] MEDS ORDERED: WARFARIN NA 3 MG TABLET PO SCH (15:09)
[2022-01-06] MEDS ORDERED: cefTRIAXone SODIUM 1 GM VIAL ONE (15:58)
[2022-01-06] MEDS ORDERED: DEXTROSE 5%-WATER - 50 ML IVPB ONE (15:58)
[2022-01-06] MEDS: CEFTRIAXONE 1 GM in DEXTROSE 5%-WATER - 50 ML IVPB SCH (17:51)
[2022-01-06] MEDS ORDERED: CEFTRIAXONE 1 GM in DEXTROSE 5%-WATER - 50 ML IVPB SCH (18:00)
[2022-01-06] MEDS ORDERED: WARFARIN NA 2.5 MG, WARFARIN NA 1 MG PO SCH (18:00)
[2022-01-06] MEDS: DOCUSATE SODIUM 100 MG CAPSULE (FP) PO SCH (21:06)
[2022-01-06] MEDS: SENNOSIDES 8.6MG TABLET (FP) PO SCH (21:07)
[2022-01-06] MEDS: ATORVASTATIN CA 80 MG TABLET (FP) PO SCH (21:07)
[2022-01-06] MEDS: MELATONIN 5 MG TABLETS PO PRN (22:28)
[2022-01-07] MEDS ORDERED: INSULIN (NOVOLOG) ASPART 100 UNITS/ML 10ML VIAL ONE ×2 (05:41→16:38)
[2022-01-07] MEDS: GABAPENTIN 100 MG CAPSULE PO SCH ×3 (06:03→21:21)
[2022-01-07] MEDS: INSULIN SLIDING SCALE (NOVOLOG) 1 VIAL SQ SCH ×3 (06:11→16:58)
[2022-01-07] MEDS ORDERED: cefTRIAXone SODIUM 1 GM VIAL ONE (08:57)
[2022-01-07] MEDS ORDERED: DEXTROSE 5%-WATER - 50 ML IVPB ONE (08:57)
[2022-01-07] MEDS: CYANOCOBALAMIN 1,000 MCG TABLET (FP) PO SCH (09:31)
[2022-01-07] MEDS: DIGOXIN 0.125 MG TABLET PO SCH (09:31)
[2022-01-07] MEDS: CEFTRIAXONE 1 GM in DEXTROSE 5%-WATER - 50 ML IVPB SCH (09:31)
[2022-01-07] MEDS: FUROSEMIDE 40 MG/4 ML INJECTABLE VIAL IVPUSH SCH (09:35)
[2022-01-07] MEDS: PANTOPRAZOLE 40 MG TABLET PO SCH (09:35)
[2022-01-07] MEDS: metoPROLOL SUCCINATE 25 MG TAB.SR.24H (FP) PO SCH ×2 (09:39→21:21)
[2022-01-07 10:29] LABS: BASO % 0.7 % (0-2.0); EOS % 1.4 % (0-4.5); HEMATOCRIT 26.1 % (32.4-45.2); HEMOGLOBIN 8.7 GM/dL (10.7-15.3); LYMPH % 18.4 % (8-40); MCH 29.8 pg (25.7-33.7); MCHC 33.3 g/dl (32.0-36.0); MEAN CELL VOLUME 89.4 fl (80-96); MONO % 8.3 % (3.8-10.2); NEUT % 71.2 % (42.8-82.8); PLATELET COUNT 85 10^3/uL (134-434); RBC 2.92 M/mm3 (3.60-5.2); RDW 15.8 % (11.6-15.6); WHITE BLOOD COUNT 3.7 K/mm3 (4.0-10.0)
[2022-01-07 10:30] LABS: INR 2.39 (0.83-1.09); PROTHROMBIN TIME (PATIENT) 27.7 SEC (9.7-13.0)
[2022-01-07 10:52] LABS: CALCIUM 8.5 mg/dL (8.5-10.1)
[2022-01-07 10:53] LABS: BLOOD UREA NITROGEN 34.3 mg/dL (7-18)
[2022-01-07 10:56] LABS: CREATININE 1.5 mg/dL (0.55-1.3)
[2022-01-07] MEDS: WARFARIN NA 3 MG TABLET PO SCH (18:51)
[2022-01-07] MEDS: DOCUSATE SODIUM 100 MG CAPSULE (FP) PO SCH (21:21)
[2022-01-07] MEDS: SENNOSIDES 8.6MG TABLET (FP) PO SCH (21:21)
[2022-01-07] MEDS: ATORVASTATIN CA 80 MG TABLET (FP) PO SCH (21:21)
[2022-01-07] MEDS: MELATONIN 5 MG TABLETS PO PRN (21:22)
[2022-01-08] MEDS: GABAPENTIN 100 MG CAPSULE PO SCH ×3 (05:59→21:23)
[2022-01-08] MEDS: INSULIN SLIDING SCALE (NOVOLOG) 1 VIAL SQ SCH ×3 (06:19→16:53)
[2022-01-08 08:53] LABS: BASO % 0.5 % (0-2.0); EOS % 2.2 % (0-4.5); HEMATOCRIT 27.7 % (32.4-45.2); HEMOGLOBIN 9.1 GM/dL (10.7-15.3); LYMPH % 18.4 % (8-40); MCH 29.7 pg (25.7-33.7); MCHC 32.8 g/dl (32.0-36.0); MEAN CELL VOLUME 90.5 fl (80-96); MEAN PLT VOLUME 9.4 fl (7.5-11.1); MONO % 8.2 % (3.8-10.2); NEUT % 70.7 % (42.8-82.8); PLATELET COUNT 93 10^3/uL (134-434); RBC 3.06 M/mm3 (3.60-5.2); WHITE BLOOD COUNT 4.1 K/mm3 (4.0-10.0)
[2022-01-08 08:56] LABS: INR 2.4 (0.83-1.09); PROTHROMBIN TIME (PATIENT) 27.8 SEC (9.7-13.0)
[2022-01-08 09:07] LABS: CALCIUM 8.5 mg/dL (8.5-10.1)
[2022-01-08 09:08] LABS: BLOOD UREA NITROGEN 35.8 mg/dL (7-18)
[2022-01-08 09:11] LABS: CREATININE 1.5 mg/dL (0.55-1.3)
[2022-01-08] MEDS ORDERED: cefTRIAXone SODIUM 1 GM VIAL ONE (09:14)
[2022-01-08] MEDS ORDERED: DEXTROSE 5%-WATER - 50 ML IVPB ONE (09:14)
[2022-01-08] MEDS: FUROSEMIDE 40 MG/4 ML INJECTABLE VIAL IVPUSH SCH (09:16)
[2022-01-08] MEDS: CEFTRIAXONE 1 GM in DEXTROSE 5%-WATER - 50 ML IVPB SCH (09:16)
[2022-01-08] MEDS: CYANOCOBALAMIN 1,000 MCG TABLET (FP) PO SCH (09:17)
[2022-01-08] MEDS: DIGOXIN 0.125 MG TABLET PO SCH (09:17)
[2022-01-08] MEDS: metoPROLOL SUCCINATE 25 MG TAB.SR.24H (FP) PO SCH ×2 (09:17→21:22)
[2022-01-08] MEDS: PANTOPRAZOLE 40 MG TABLET PO SCH (09:17)
[2022-01-08 13:56] LABS: INR 2.48 (0.83-1.09); PROTHROMBIN TIME (PATIENT) 28.8 SEC (9.7-13.0)
[2022-01-08] MEDS: WARFARIN NA 3 MG TABLET PO SCH (18:09)
[2022-01-08] MEDS: SENNOSIDES 8.6MG TABLET (FP) PO SCH (21:22)
[2022-01-08] MEDS: DOCUSATE SODIUM 100 MG CAPSULE (FP) PO SCH (21:23)
[2022-01-08] MEDS: MELATONIN 5 MG TABLETS PO PRN (21:23)
[2022-01-08] MEDS: ATORVASTATIN CA 80 MG TABLET (FP) PO SCH (21:23)
[2022-01-09] MEDS: GABAPENTIN 100 MG CAPSULE PO SCH ×3 (06:16→21:27)
[2022-01-09] MEDS: INSULIN SLIDING SCALE (NOVOLOG) 1 VIAL SQ SCH ×3 (06:16→16:16)
[2022-01-09 08:17] LABS: BASO % 0.8 % (0-2.0); EOS % 2.5 % (0-4.5); HEMATOCRIT 27.4 % (32.4-45.2); HEMOGLOBIN 9.1 GM/dL (10.7-15.3); LYMPH % 23.4 % (8-40); MCH 29.8 pg (25.7-33.7); MCHC 33.4 g/dl (32.0-36.0); MEAN CELL VOLUME 89.2 fl (80-96); MEAN PLT VOLUME 9.1 fl (7.5-11.1); MONO % 8.5 % (3.8-10.2); NEUT % 64.8 % (42.8-82.8); PLATELET COUNT 100 10^3/uL (134-434); RBC 3.07 M/mm3 (3.60-5.2); RDW 15.7 % (11.6-15.6); WHITE BLOOD COUNT 3.9 K/mm3 (4.0-10.0)
[2022-01-09 08:19] LABS: BLOOD UREA NITROGEN 35.6 mg/dL (7-18); INR 2.42 (0.83-1.09); PROTHROMBIN TIME (PATIENT) 28.1 SEC (9.7-13.0)
[2022-01-09 08:20] LABS: CALCIUM 8.5 mg/dL (8.5-10.1)
[2022-01-09 08:22] LABS: CREATININE 1.4 mg/dL (0.55-1.3)
[2022-01-09] MEDS ORDERED: DEXTROSE 5%-WATER - 50 ML IVPB ONE (09:21)
[2022-01-09] MEDS ORDERED: cefTRIAXone SODIUM 1 GM VIAL ONE (09:21)
[2022-01-09] MEDS: FUROSEMIDE 40 MG/4 ML INJECTABLE VIAL IVPUSH SCH (09:34)
[2022-01-09] MEDS: CEFTRIAXONE 1 GM in DEXTROSE 5%-WATER - 50 ML IVPB SCH (09:34)
[2022-01-09] MEDS: PANTOPRAZOLE 40 MG TABLET PO SCH (09:34)
[2022-01-09] MEDS: DIGOXIN 0.125 MG TABLET PO SCH (09:34)
[2022-01-09] MEDS: metoPROLOL SUCCINATE 25 MG TAB.SR.24H (FP) PO SCH ×2 (09:34→21:27)
[2022-01-09] MEDS: CYANOCOBALAMIN 1,000 MCG TABLET (FP) PO SCH (09:35)
[2022-01-09 12:34] LABS: INR 2.5 (0.83-1.09)
[2022-01-09] MEDS: WARFARIN NA 3 MG TABLET PO SCH (17:06)
[2022-01-09] MEDS: SENNOSIDES 8.6MG TABLET (FP) PO SCH (21:27)
[2022-01-09] MEDS: ATORVASTATIN CA 80 MG TABLET (FP) PO SCH (21:27)
[2022-01-09] MEDS: DOCUSATE SODIUM 100 MG CAPSULE (FP) PO SCH (21:27)
[2022-01-10] MEDS: GABAPENTIN 100 MG CAPSULE PO SCH ×3 (05:33→21:04)
[2022-01-10] MEDS: INSULIN SLIDING SCALE (NOVOLOG) 1 VIAL SQ SCH ×3 (06:24→17:09)
[2022-01-10 07:20] LABS: BASO % 0.7 % (0-2.0); CALCIUM 8.4 mg/dL (8.5-10.1); HEMATOCRIT 26.8 % (32.4-45.2); LYMPH % 24.1 % (8-40); MCH 29.8 pg (25.7-33.7); MCHC 33.5 g/dl (32.0-36.0); MEAN CELL VOLUME 89.1 fl (80-96); MEAN PLT VOLUME 9.3 fl (7.5-11.1); MONO % 8.4 % (3.8-10.2); NEUT % 64.8 % (42.8-82.8); PLATELET COUNT 107 10^3/uL (134-434); RBC 3.01 M/mm3 (3.60-5.2); RDW 15.7 % (11.6-15.6)
[2022-01-10 07:21] LABS: BLOOD UREA NITROGEN 37.6 mg/dL (7-18)
[2022-01-10 07:22] LABS: INR 2.5 (0.83-1.09)
[2022-01-10 07:24] LABS: CREATININE 1.3 mg/dL (0.55-1.3)
[2022-01-10] MEDS ORDERED: DEXTROSE 5%-WATER - 50 ML IVPB ONE (10:16)
[2022-01-10] MEDS ORDERED: cefTRIAXone SODIUM 1 GM VIAL ONE (10:16)
[2022-01-10] MEDS: FUROSEMIDE 40 MG/4 ML INJECTABLE VIAL IVPUSH SCH (10:59)
[2022-01-10] MEDS: CYANOCOBALAMIN 1,000 MCG TABLET (FP) PO SCH (10:59)
[2022-01-10] MEDS: PANTOPRAZOLE 40 MG TABLET PO SCH (10:59)
[2022-01-10] MEDS: CEFTRIAXONE 1 GM in DEXTROSE 5%-WATER - 50 ML IVPB SCH (11:00)
[2022-01-10] MEDS: metoPROLOL SUCCINATE 25 MG TAB.SR.24H (FP) PO SCH ×2 (11:00→21:04)
[2022-01-10] MEDS: DIGOXIN 0.125 MG TABLET PO SCH (11:00)
[2022-01-10] MEDS: WARFARIN NA 3 MG TABLET PO SCH (17:09)
[2022-01-10] MEDS: MELATONIN 5 MG TABLETS PO PRN (21:04)
[2022-01-10] MEDS: ATORVASTATIN CA 80 MG TABLET (FP) PO SCH (21:04)
[2022-01-10] MEDS: DOCUSATE SODIUM 100 MG CAPSULE (FP) PO SCH (21:04)
[2022-01-10] MEDS: SENNOSIDES 8.6MG TABLET (FP) PO SCH (21:04)
[2022-01-11] MEDS: GABAPENTIN 100 MG CAPSULE PO SCH ×3 (06:10→21:04)
[2022-01-11] MEDS: INSULIN SLIDING SCALE (NOVOLOG) 1 VIAL SQ SCH ×3 (06:13→17:22)
[2022-01-11] MEDS: PANTOPRAZOLE 40 MG TABLET PO SCH (09:13)
[2022-01-11] MEDS: CYANOCOBALAMIN 1,000 MCG TABLET (FP) PO SCH (09:13)
[2022-01-11] MEDS: metoPROLOL SUCCINATE 25 MG TAB.SR.24H (FP) PO SCH ×2 (09:13→21:04)
[2022-01-11] MEDS: CEPHALEXIN MONOHYDRATE 500 MG CAPSULE (UD) PO SCH ×2 (09:13→21:04)
[2022-01-11] MEDS: DIGOXIN 0.125 MG TABLET PO SCH (09:14)
[2022-01-11 10:07] LABS: BASO % 0.6 % (0-2.0); HEMATOCRIT 29.4 % (32.4-45.2); HEMOGLOBIN 9.7 GM/dL (10.7-15.3); LYMPH % 20.3 % (8-40); MCH 29.5 pg (25.7-33.7); MCHC 32.9 g/dl (32.0-36.0); MEAN CELL VOLUME 89.7 fl (80-96); MEAN PLT VOLUME 9.2 fl (7.5-11.1); MONO % 7.1 % (3.8-10.2); PLATELET COUNT 110 10^3/uL (134-434); RBC 3.28 M/mm3 (3.60-5.2); RDW 15.8 % (11.6-15.6); WHITE BLOOD COUNT 5.4 K/mm3 (4.0-10.0)
[2022-01-11 10:21] LABS: INR 2.01 (0.83-1.09); PROTHROMBIN TIME (PATIENT) 23.3 SEC (9.7-13.0)
[2022-01-11] MEDS: FUROSEMIDE 40 MG/4 ML INJECTABLE VIAL IVPUSH SCH (10:46)
[2022-01-11 11:03] LABS: CALCIUM 8.6 mg/dL (8.5-10.1)
[2022-01-11 11:04] LABS: BLOOD UREA NITROGEN 36.2 mg/dL (7-18); MAGNESIUM 2.3 mg/dL (1.8-2.4)
[2022-01-11 11:07] LABS: CREATININE 1.4 mg/dL (0.55-1.3)
[2022-01-11] MEDS ORDERED: FUROSEMIDE 40 MG TABLET (FP) PO SCH (11:15)
[2022-01-11] MEDS ORDERED: INSULIN (NOVOLOG) ASPART 100 UNITS/ML 10ML VIAL ONE (11:24)
[2022-01-11 13:55] LABS: INR 1.99 (0.83-1.09)
[2022-01-11] MEDS ORDERED: WARFARIN NA 3 MG TABLET PO SCH (13:59)
[2022-01-11] MEDS ORDERED: WARFARIN NA 2.5 MG, WARFARIN NA 1 MG PO SCH (18:00)
[2022-01-11] MEDS: ATORVASTATIN CA 80 MG TABLET (FP) PO SCH (21:04)
[2022-01-11] MEDS: SENNOSIDES 8.6MG TABLET (FP) PO SCH (21:04)
[2022-01-11] MEDS: DOCUSATE SODIUM 100 MG CAPSULE (FP) PO SCH (21:04)
[2022-01-12] MEDS: GABAPENTIN 100 MG CAPSULE PO SCH ×2 (06:50→14:15)
[2022-01-12] MEDS: INSULIN SLIDING SCALE (NOVOLOG) 1 VIAL SQ SCH ×3 (06:55→17:06)
[2022-01-12] MEDS ORDERED: INSULIN (NOVOLOG) ASPART 100 UNITS/ML 10ML VIAL ONE (06:56)
[2022-01-12 09:15] LABS: BASO % 0.9 % (0-2.0); EOS % 2.4 % (0-4.5); HEMATOCRIT 31.3 % (32.4-45.2); HEMOGLOBIN 10.2 GM/dL (10.7-15.3); LYMPH % 23.6 % (8-40); MCH 29.3 pg (25.7-33.7); MCHC 32.6 g/dl (32.0-36.0); MEAN CELL VOLUME 90.1 fl (80-96); MEAN PLT VOLUME 9.2 fl (7.5-11.1); MONO % 7.9 % (3.8-10.2); NEUT % 65.2 % (42.8-82.8); PLATELET COUNT 111 10^3/uL (134-434); RBC 3.47 M/mm3 (3.60-5.2); WHITE BLOOD COUNT 4.6 K/mm3 (4.0-10.0)
[2022-01-12 09:19] LABS: INR 2.09 (0.83-1.09); PROTHROMBIN TIME (PATIENT) 24.2 SEC (9.7-13.0)
[2022-01-12 09:46] LABS: BLOOD UREA NITROGEN 38.8 mg/dL (7-18)
[2022-01-12 09:47] LABS: CALCIUM 8.9 mg/dL (8.5-10.1)
[2022-01-12 09:53] LABS: CREATININE 1.4 mg/dL (0.55-1.3)
[2022-01-12 12:09] LABS: SARS-CoV-2 NAA Not Detected (Not Detected)
[2022-01-12] MEDS: DIGOXIN 0.125 MG TABLET PO SCH (12:32)
[2022-01-12] MEDS: PANTOPRAZOLE 40 MG TABLET PO SCH (12:32)
[2022-01-12] MEDS: CEPHALEXIN MONOHYDRATE 500 MG CAPSULE (UD) PO SCH (12:32)
[2022-01-12] MEDS: metoPROLOL SUCCINATE 25 MG TAB.SR.24H (FP) PO SCH (12:38)
[2022-01-12] MEDS: CYANOCOBALAMIN 1,000 MCG TABLET (FP) PO SCH (12:39)
[2022-01-12 14:58] VITALS: BP 136/77; PULSE 71; TEMP 98.3
[2022-01-12 16:53] LABS: INR 2.06 (0.83-1.09); PROTHROMBIN TIME (PATIENT) 23.9 SEC (9.7-13.0)
== END 2022-01-12 18:28 | DRG 291 ==
LOC: JER 08:12 → JERBED 11:37 → J6S 18:24 → OBSVTOIN 01-09 13:56 → J6S 01-11 18:07
PROVIDERS: ADMIT Internal Medicine; ATTEND Internal Medicine
DX: I13.0 Hypertensive heart and chronic kidney disease with heart failure and stage 1 through stage 4 chronic kidney disease, or unspecified chronic kidney disease (principal); I50.33 Acute on chronic diastolic (congestive) heart failure; I48.20 Chronic atrial fibrillation, unspecified; N39.0 Urinary tract infection, site not specified; N17.9 Acute kidney failure, unspecified; R64 Cachexia; Z68.1 Body mass index [BMI] 19.9 or less, adult; L03.119 Cellulitis of unspecified part of limb; E11.22 Type 2 diabetes mellitus with diabetic chronic kidney disease; N18.9 Chronic kidney disease, unspecified; E11.51 Type 2 diabetes mellitus with diabetic peripheral angiopathy without gangrene; E78.5 Hyperlipidemia, unspecified; B96.20 Unspecified Escherichia coli [E. coli] as the cause of diseases classified elsewhere; D50.9 Iron deficiency anemia, unspecified; R26.81 Unsteadiness on feet; R55 Syncope and collapse; R79.1 Abnormal coagulation profile; G47.00 Insomnia, unspecified; R59.0 Localized enlarged lymph nodes; D69.6 Thrombocytopenia, unspecified; E53.8 Deficiency of other specified B group vitamins; Z86.73 Personal history of transient ischemic attack (TIA), and cerebral infarction without residual deficits; W18.30XA Fall on same level, unspecified, initial encounter; Y92.098 Other place in other non-institutional residence as the place of occurrence of the external cause; Z88.0 Allergy status to penicillin
CPT/HCPCS: 36415; 70450-TC; 71045-TC-FY; 72125-TC; 73590-TC-LT-FY; 73610-TC-LT-FY; 73630-TC-LT; 80048; 80053; 80162; 81003; 82550; 82728; 82962; 83540; 83550; 83735; 83880; 84100; 84484; 85025; 85610; 85730; 87040; 87086; 87186; 93005; 93010; 93306-TC; 97116-GP; 97162-GP; 99285-25; C9803-CS; G0378; J1756; U0003; U0005

== ENCOUNTER 2022-03-11 04:10 | Inpatient (IN) | payer OTHER ==
[2022-03-11] MEDS ORDERED: DEXTROSE 50%-WATER - 25 GM/50 ML VIAL IVPUSH ONE (04:28)
[2022-03-11] MEDS ORDERED: DEXTROSE 50%-WATER 25 GM/50 ML DISP.SYRIN ONE ×2 (04:34→04:44)
[2022-03-11] MEDS ORDERED: GLUCAGON 1 MG KIT ONE (04:35)
[2022-03-11] MEDS ORDERED: GLUCAGON 1 MG KIT IM ONE (04:51)
[2022-03-11 04:52] VITALS: BMI 31.8
[2022-03-11 04:55] LABS: BASO % 0.2 % (0-2.0); EOS % 0.1 % (0-4.5); HEMATOCRIT 31.2 % (32.4-45.2); HEMOGLOBIN 10.3 GM/dL (10.7-15.3); LYMPH % 4.8 % (8-40); MCH 30.1 pg (25.7-33.7); MCHC 32.8 g/dl (32.0-36.0); MEAN CELL VOLUME 91.7 fl (80-96); MEAN PLT VOLUME 8.2 fl (7.5-11.1); MONO % 4.3 % (3.8-10.2); NEUT % 90.6 % (42.8-82.8); PLATELET COUNT 97 10^3/uL (134-434); RBC 3.41 M/mm3 (3.60-5.2); RDW 17.9 % (11.6-15.6); WHITE BLOOD COUNT 6.8 K/mm3 (4.0-10.0)
[2022-03-11 05:29] LABS: INR 2.62 (0.83-1.09); PROTHROMBIN TIME (PATIENT) 30.4 SEC (9.7-13.0)
[2022-03-11 05:32] LABS: ACTIVATED PTT 42.4 SECONDS (25.2-36.5)
[2022-03-11 05:59] LABS: BILIRUBIN,TOTAL 0.9 mg/dL (0.2-1); BLOOD UREA NITROGEN 48.1 mg/dL (7-18); CALCIUM 9.1 mg/dL (8.5-10.1); CREATININE 1.5 mg/dL (0.55-1.3); MAGNESIUM 2.2 mg/dL (1.8-2.4); PHOSPHOROUS 4.2 mg/dL (2.5-4.9); TOT PROT 7.4 g/dl (6.4-8.2)
[2022-03-11] MEDS ORDERED: MELATONIN 5 MG TABLETS PO PRN (07:00)
[2022-03-11] MEDS ORDERED: DEXTROSE 5%-0.45% SALINE 1,000 ML IV SCH ×2 (07:15→08:01)
[2022-03-11] MEDS ORDERED: GABAPENTIN 100 MG CAPSULE ONE ×3 (07:31→22:07)
[2022-03-11] MEDS: GABAPENTIN 100 MG CAPSULE PO SCH ×3 (07:43→22:28)
[2022-03-11] MEDS ORDERED: DIGOXIN 0.125 MG TABLET ONE (08:05)
[2022-03-11] MEDS: DIGOXIN 0.125 MG TABLET PO SCH (08:10)
[2022-03-11 08:37] LABS: URINE APPEARANCE CLEAR; URINE BILIRUBIN NEGATIVE (NEGATIVE); URINE COLOR YELLOW; URINE GLUCOSE (UA) 1+ (NEGATIVE); URINE KETONE NEGATIVE (NEGATIVE); URINE LEUK ESTERASE NEGATIVE (NEGATIVE); URINE NITRITE NEGATIVE (NEGATIVE); URINE PROTEIN TRACE (NEGATIVE); URINE UROBILINOGEN 0.2 mg/dL (0.2-1.0)
[2022-03-11] MEDS ORDERED: PANTOPRAZOLE 40 MG TABLET PO ONE (09:30)
[2022-03-11] MEDS ORDERED: metoPROLOL SUCCINATE 25 MG TAB.SR.24H (FP) PO ONE (09:31)
[2022-03-11] MEDS: PANTOPRAZOLE 40 MG TABLET PO SCH (09:39)
[2022-03-11] MEDS: CALCIUM CARBONATE 650 MG TABLET PO SCH (09:39)
[2022-03-11] MEDS: metoPROLOL SUCCINATE 25 MG TAB.SR.24H (FP) PO SCH (09:39)
[2022-03-11] MEDS: CYANOCOBALAMIN 1,000 MCG TABLET (FP) PO SCH (09:40)
[2022-03-11] MEDS ORDERED: DIGOXIN 0.125 MG TABLET PO SCH (10:00)
[2022-03-11] MEDS: DEXTROSE 5%-WATER - 1,000 ML IV SCH (10:15)
[2022-03-11] MEDS ORDERED: FUROSEMIDE 40 MG TABLET (FP) ONE (11:18)
[2022-03-11] MEDS: INSULIN SLIDING SCALE (NOVOLOG) 1 VIAL SQ SCH ×2 (11:18→16:45)
[2022-03-11] MEDS: FUROSEMIDE 40 MG TABLET (FP) PO SCH (11:21)
[2022-03-11] MEDS ORDERED: ACETAMINOPHEN 325 MG TABLET (FP) ONE (11:43)
[2022-03-11] MEDS: ACETAMINOPHEN 325 MG TABLET (FP) PO PRN (11:44)
[2022-03-11] MEDS: WARFARIN NA 3 MG TABLET PO SCH (18:08)
[2022-03-11] MEDS ORDERED: IRON SUCROSE INJECTION 300 MG in SODIUM CHLORIDE 235 ML IVPB ONE (20:00)
[2022-03-11] MEDS ORDERED: ATORVASTATIN CA 80 MG TABLET (FP) PO SCH (22:00)
[2022-03-11] MEDS ORDERED: DOCUSATE SODIUM 100 MG CAPSULE (FP) PO ONE (22:07)
[2022-03-11] MEDS ORDERED: SENNOSIDES 8.6MG TABLET (FP) PO ONE (22:07)
[2022-03-11] MEDS: DOCUSATE SODIUM 100 MG CAPSULE (FP) PO SCH (22:28)
[2022-03-11] MEDS: SENNOSIDES 8.6MG TABLET (FP) PO SCH (22:28)
[2022-03-12] MEDS: GABAPENTIN 100 MG CAPSULE PO SCH ×3 (06:15→22:06)
[2022-03-12] MEDS: INSULIN SLIDING SCALE (NOVOLOG) 1 VIAL SQ SCH ×3 (08:37→18:54)
[2022-03-12] MEDS ORDERED: PANTOPRAZOLE 40 MG TABLET PO ONE (08:45)
[2022-03-12] MEDS ORDERED: FUROSEMIDE 40 MG TABLET (FP) ONE (08:45)
[2022-03-12] MEDS ORDERED: metoPROLOL SUCCINATE 25 MG TAB.SR.24H (FP) PO ONE (08:46)
[2022-03-12 09:03] LABS: BASO % 0.5 % (0-2.0); EOS % 0.8 % (0-4.5); HEMATOCRIT 26.4 % (32.4-45.2); HEMOGLOBIN 8.9 GM/dL (10.7-15.3); LYMPH % 23.1 % (8-40); MCH 30.5 pg (25.7-33.7); MCHC 33.5 g/dl (32.0-36.0); MEAN CELL VOLUME 90.9 fl (80-96); MEAN PLT VOLUME 8.8 fl (7.5-11.1); MONO % 11.2 % (3.8-10.2); NEUT % 64.4 % (42.8-82.8); PLATELET COUNT 78 10^3/uL (134-434); RBC 2.91 M/mm3 (3.60-5.2); RDW 17.9 % (11.6-15.6); WHITE BLOOD COUNT 3.5 K/mm3 (4.0-10.0)
[2022-03-12 09:30] LABS: CALCIUM 8.5 mg/dL (8.5-10.1)
[2022-03-12 09:31] LABS: ALBUMIN 3.2 g/dl (3.4-5.0)
[2022-03-12 09:32] LABS: BLOOD UREA NITROGEN 44.5 mg/dL (7-18)
[2022-03-12 09:34] LABS: CREATININE 1.5 mg/dL (0.55-1.3)
[2022-03-12 09:36] LABS: BILIRUBIN,TOTAL 0.8 mg/dL (0.2-1); TOT PROT 6.2 g/dl (6.4-8.2)
[2022-03-12] MEDS: CALCIUM CARBONATE 650 MG TABLET PO SCH (09:52)
[2022-03-12] MEDS: metoPROLOL SUCCINATE 25 MG TAB.SR.24H (FP) PO SCH (09:53)
[2022-03-12] MEDS: FUROSEMIDE 40 MG TABLET (FP) PO SCH (09:53)
[2022-03-12] MEDS: PANTOPRAZOLE 40 MG TABLET PO SCH (09:53)
[2022-03-12] MEDS: DEXTROSE 5%-WATER - 1,000 ML IV SCH (09:53)
[2022-03-12] MEDS: CYANOCOBALAMIN 1,000 MCG TABLET (FP) PO SCH (10:30)
[2022-03-12] MEDS ORDERED: EPOETIN ALFA-EPBX 20,000 UNIT/ML VIAL SQ ONE (12:00)
[2022-03-12] MEDS ORDERED: PANTOPRAZOLE 40 MG TABLET PO SCH (12:48)
[2022-03-12] MEDS ORDERED: PANTOPRAZOLE SODIUM 40 MG VIAL IVPUSH SCH (13:00)
[2022-03-12] MEDS ORDERED: ACETAMINOPHEN 325 MG TABLET (FP) ONE (13:01)
[2022-03-12] MEDS ORDERED: PANTOPRAZOLE SODIUM 40 MG VIAL ONE (13:09)
[2022-03-12] MEDS: ACETAMINOPHEN 325 MG TABLET (FP) PO PRN (13:19)
[2022-03-12] MEDS ORDERED: GABAPENTIN 100 MG CAPSULE ONE (16:23)
[2022-03-12] MEDS: WARFARIN NA 3 MG TABLET PO SCH (18:54)
[2022-03-12] MEDS: DOCUSATE SODIUM 100 MG CAPSULE (FP) PO SCH (22:06)
[2022-03-12] MEDS: SENNOSIDES 8.6MG TABLET (FP) PO SCH (22:07)
[2022-03-13] MEDS ORDERED: DOCUSATE SODIUM 100 MG CAPSULE (FP) PO ONE (00:59)
[2022-03-13] MEDS ORDERED: GABAPENTIN 100 MG CAPSULE ONE ×2 (00:59→06:19)
[2022-03-13] MEDS ORDERED: SENNOSIDES 8.6MG TABLET (FP) PO ONE (00:59)
[2022-03-13] MEDS: GABAPENTIN 100 MG CAPSULE PO SCH (06:24)
[2022-03-13] MEDS: INSULIN SLIDING SCALE (NOVOLOG) 1 VIAL SQ SCH (06:24)
[2022-03-13] MEDS ORDERED: DIGOXIN 0.125 MG TABLET ONE (07:38)
[2022-03-13] MEDS: DIGOXIN 0.125 MG TABLET PO SCH (07:52)
[2022-03-13 08:12] VITALS: BP 163/89
[2022-03-13 08:29] VITALS: PULSE 89; TEMP 98.3
[2022-03-13 09:03] LABS: BASO % 0.7 % (0-2.0); EOS % 2.2 % (0-4.5); HEMATOCRIT 28.7 % (32.4-45.2); HEMOGLOBIN 9.5 GM/dL (10.7-15.3); LYMPH % 26.3 % (8-40); MCH 29.9 pg (25.7-33.7); MEAN CELL VOLUME 90.5 fl (80-96); MEAN PLT VOLUME 8.7 fl (7.5-11.1); MONO % 9.2 % (3.8-10.2); NEUT % 61.6 % (42.8-82.8); PLATELET COUNT 88 10^3/uL (134-434); RBC 3.17 M/mm3 (3.60-5.2); RDW 17.9 % (11.6-15.6)
[2022-03-13 09:06] LABS: INR 1.18 (0.83-1.09); PROTHROMBIN TIME (PATIENT) 13.6 SEC (9.7-13.0)
[2022-03-13 09:28] LABS: ALBUMIN 3.2 g/dl (3.4-5.0); BLOOD UREA NITROGEN 34.1 mg/dL (7-18); CALCIUM 8.7 mg/dL (8.5-10.1)
[2022-03-13 09:30] LABS: CREATININE 1.3 mg/dL (0.55-1.3)
[2022-03-13 09:32] LABS: TOT PROT 6.1 g/dl (6.4-8.2)
== END 2022-03-13 08:50 | disposition home or self-care (01) | DRG 638 ==
LOC: JER 04:10 → JERBED 06:07
PROVIDERS: ADMIT Internal Medicine; ATTEND Internal Medicine
DX: E11.649 Type 2 diabetes mellitus with hypoglycemia without coma (principal); I13.0 Hypertensive heart and chronic kidney disease with heart failure and stage 1 through stage 4 chronic kidney disease, or unspecified chronic kidney disease; I50.32 Chronic diastolic (congestive) heart failure; N17.9 Acute kidney failure, unspecified; E11.51 Type 2 diabetes mellitus with diabetic peripheral angiopathy without gangrene; E11.42 Type 2 diabetes mellitus with diabetic polyneuropathy; F03.90 Unspecified dementia, unspecified severity, without behavioral disturbance, psychotic disturbance, mood disturbance, and anxiety; I48.91 Unspecified atrial fibrillation; E78.5 Hyperlipidemia, unspecified; E53.8 Deficiency of other specified B group vitamins; D72.829 Elevated white blood cell count, unspecified; D69.6 Thrombocytopenia, unspecified; K59.00 Constipation, unspecified; N32.81 Overactive bladder; D50.9 Iron deficiency anemia, unspecified; E86.0 Dehydration; M50.30 Other cervical disc degeneration, unspecified cervical region; G47.00 Insomnia, unspecified; E11.22 Type 2 diabetes mellitus with diabetic chronic kidney disease; N18.30 Chronic kidney disease, stage 3 unspecified; W18.30XA Fall on same level, unspecified, initial encounter; Y92.89 Other specified places as the place of occurrence of the external cause; Z86.73 Personal history of transient ischemic attack (TIA), and cerebral infarction without residual deficits
CPT/HCPCS: 36415; 70450-TC; 71045-TC-FY; 72125-TC; 80053; 80162; 81003; 82570; 82728; 82962; 83036; 83540; 83550; 83605; 83735; 84100; 84156; 84484; 85025; 85610; 85730; 87086; 93005; 93010; 99285-25; C9803-CS; J1756; U0003; U0005

== ENCOUNTER 2023-02-13 15:57 | Emergency (ER) | payer OTHER ==
[2023-02-13 16:49] VITALS: BMI 28.3
[2023-02-13] MEDS ORDERED: SULFAMETHOXAZOLE/TRIMETHOPRIM 800MG/160MG D.S. TABLET PO ONE ×2 (17:43→17:45)
[2023-02-13] MEDS ORDERED: SULFAMETHOXAZOLE/TRIMETHOPRIM 800MG/160MG D.S. TABLET ONE (18:10)
[2023-02-13 21:40] VITALS: TEMP 98.4
[2023-02-14 00:38] VITALS: BP 150/81; PULSE 68; RESP 14
== END 2023-02-14 01:13 | disposition home or self-care (01) ==
LOC: JER 15:57
DX: L03.116 Cellulitis of left lower limb (principal); M79.605 Pain in left leg; R60.0 Localized edema; S80.821A Blister (nonthermal), right lower leg, initial encounter; X58.XXXA Exposure to other specified factors, initial encounter
CPT/HCPCS: 73590-TC-RT-FY; 99283-25

== ENCOUNTER 2023-02-24 07:59 | Inpatient (IN) | payer OTHER ==
[2023-02-24] MEDS ORDERED: ACETAMINOPHEN 1000 MG/100 ML BAG IVPB ONE (08:17)
[2023-02-24] MEDS ORDERED: ACETAMINOPHEN INJECTION 100 ML IVPB ONE (08:36)
[2023-02-24 09:08] LABS: VENOUS BASE EXCESS 1.8 mmol/L (-2-2); VENOUS O2 SATURATION 59.3 % (70-80); VENOUS PCO2 50.3 mmHg (38-52); VENOUS PH 7.361 (7.310-7.410)
[2023-02-24 09:16] LABS: BASO % 0.5 % (0-2.0); HEMATOCRIT 31.2 % (32.4-45.2); HEMOGLOBIN 10.4 GM/dL (10.7-15.3); LYMPH % 18.4 % (8-40); MCH 29.6 pg (25.7-33.7); MCHC 33.3 g/dl (32.0-36.0); MEAN CELL VOLUME 88.9 fl (80-96); MONO % 6.7 % (3.8-10.2); NEUT % 73.4 % (42.8-82.8); PLATELET COUNT 104 10^3/uL (134-434); RBC 3.51 M/mm3 (3.60-5.2); WHITE BLOOD COUNT 5.8 K/mm3 (4.0-10.0)
[2023-02-24 09:21] LABS: INR 1.27 (0.83-1.09); PROTHROMBIN TIME (PATIENT) 14.7 SEC (9.7-13.0)
[2023-02-24 09:24] LABS: ACTIVATED PTT 32.7 SECONDS (25.2-36.5)
[2023-02-24] MEDS ORDERED: CEFEPIME HCL/D5W 1 GM/50 ML BAG IVPB ONE (09:24)
[2023-02-24 10:27] LABS: POTASSIUM 4.6 mmol/L (3.5-5.1)
[2023-02-24 10:29] LABS: ALBUMIN 3.6 g/dl (3.4-5.0); CALCIUM 9.1 mg/dL (8.5-10.1)
[2023-02-24 10:30] LABS: BLOOD UREA NITROGEN 44.3 mg/dL (7-18)
[2023-02-24 10:33] LABS: CREATININE 1.8 mg/dL (0.55-1.3)
[2023-02-24 10:34] LABS: BILIRUBIN,TOTAL 0.7 mg/dL (0.2-1); TOT PROT 6.9 g/dl (6.4-8.2)
[2023-02-24] MEDS ORDERED: CEFEPIME 1 GM/100 ML BAG IVPB ONE (11:42)
[2023-02-24] MEDS ORDERED: ACETAMINOPHEN 325 MG TABLET (FP) PO PRN ×2 (13:12→13:27)
[2023-02-24] MEDS ORDERED: ACETAMINOPHEN 325 MG TABLET (FP) ONE (14:33)
[2023-02-24] MEDS ORDERED: PANTOPRAZOLE 40 MG TABLET PO ONE (14:33)
[2023-02-24] MEDS ORDERED: HEPARIN NA (PORCINE) 5,000 UNITS/ML 1ML VIAL ONE (14:34)
[2023-02-24] MEDS ORDERED: FUROSEMIDE 40 MG/4 ML INJECTABLE VIAL ONE (14:34)
[2023-02-24] MEDS: HEPARIN NA (PORCINE) 5,000 UNITS/ML 1ML VIAL SQ SCH ×2 (14:45→21:20)
[2023-02-24] MEDS: FUROSEMIDE 40 MG/4 ML INJECTABLE VIAL IVPUSH SCH (14:45)
[2023-02-24] MEDS: PANTOPRAZOLE 40 MG TABLET PO SCH (14:45)
[2023-02-24] MEDS ORDERED: INSULIN SLIDING SCALE (NOVOLOG) 1 VIAL SQ SCH ×2 (16:30)
[2023-02-24] MEDS ORDERED: IRON SUCROSE INJECTION 300 MG in SODIUM CHLORIDE 235 ML IVPB ONE (19:00)
[2023-02-24] MEDS: DOCUSATE SODIUM 100 MG CAPSULE (FP) PO SCH (21:20)
[2023-02-24] MEDS: INSULIN SLIDING SCALE (NOVOLOG) 1 VIAL SQ SCH (21:21)
[2023-02-25] MEDS: HEPARIN NA (PORCINE) 5,000 UNITS/ML 1ML VIAL SQ SCH ×3 (06:04→21:24)
[2023-02-25] MEDS: INSULIN SLIDING SCALE (NOVOLOG) 1 VIAL SQ SCH ×4 (06:09→21:23)
[2023-02-25 09:58] LABS: POTASSIUM 3.8 mmol/L (3.5-5.1)
[2023-02-25] MEDS ORDERED: DIGOXIN 0.125 MG TABLET PO SCH (10:00)
[2023-02-25 10:08] LABS: CALCIUM 8.9 mg/dL (8.5-10.1)
[2023-02-25 10:09] LABS: BLOOD UREA NITROGEN 31.3 mg/dL (7-18)
[2023-02-25 10:12] LABS: CREATININE 1.4 mg/dL (0.55-1.3)
[2023-02-25] MEDS: PANTOPRAZOLE 40 MG TABLET PO SCH (10:58)
[2023-02-25] MEDS: CYANOCOBALAMIN 1,000 MCG TABLET (FP) PO SCH (10:58)
[2023-02-25] MEDS: FERROUS SO4 325 MG TABLET (FP) PO SCH (10:58)
[2023-02-25] MEDS: DIGOXIN 0.125 MG TABLET PO SCH (10:59)
[2023-02-25] MEDS: FUROSEMIDE 40 MG/4 ML INJECTABLE VIAL IVPUSH SCH (11:24)
[2023-02-25 11:36] LABS: BASO % 0.5 % (0-2.0); EOS % 0.8 % (0-4.5); HEMATOCRIT 30.8 % (32.4-45.2); HEMOGLOBIN 10.3 GM/dL (10.7-15.3); LYMPH % 15.8 % (8-40); MCH 29.5 pg (25.7-33.7); MCHC 33.5 g/dl (32.0-36.0); MEAN CELL VOLUME 88.1 fl (80-96); MEAN PLT VOLUME 8.6 fl (7.5-11.1); MONO % 7.1 % (3.8-10.2); NEUT % 75.8 % (42.8-82.8); PLATELET COUNT 96 10^3/uL (134-434); RDW 15.9 % (11.6-15.6); WHITE BLOOD COUNT 6.5 K/mm3 (4.0-10.0)
[2023-02-25 11:46] VITALS: BMI 26.0
[2023-02-25 15:04] LABS: URINE APPEARANCE CLEAR; URINE BILIRUBIN NEGATIVE (NEGATIVE); URINE COLOR YELLOW; URINE GLUCOSE (UA) NEGATIVE (NEGATIVE); URINE KETONE NEGATIVE (NEGATIVE); URINE LEUK ESTERASE NEGATIVE (NEGATIVE); URINE NITRITE NEGATIVE (NEGATIVE); URINE PROTEIN NEGATIVE (NEGATIVE); URINE UROBILINOGEN 0.2 mg/dL (0.2-1.0)
[2023-02-25 15:52] LABS: CREATININE, URINE RANDOM < 13.0 mg/dL (30-150)
[2023-02-25] MEDS: CEFTRIAXONE 1 GM in DEXTROSE 5%-WATER - 50 ML IVPB SCH (18:32)
[2023-02-25] MEDS: DOCUSATE SODIUM 100 MG CAPSULE (FP) PO SCH (21:16)
[2023-02-26] MEDS: HEPARIN NA (PORCINE) 5,000 UNITS/ML 1ML VIAL SQ SCH ×3 (05:23→21:36)
[2023-02-26] MEDS: INSULIN SLIDING SCALE (NOVOLOG) 1 VIAL SQ SCH ×4 (06:08→21:36)
[2023-02-26] MEDS: CEFTRIAXONE 1 GM in DEXTROSE 5%-WATER - 50 ML IVPB SCH (09:20)
[2023-02-26] MEDS: PANTOPRAZOLE 40 MG TABLET PO SCH (09:28)
[2023-02-26] MEDS: CYANOCOBALAMIN 1,000 MCG TABLET (FP) PO SCH (09:28)
[2023-02-26] MEDS: FERROUS SO4 325 MG TABLET (FP) PO SCH (09:28)
[2023-02-26] MEDS ORDERED: FUROSEMIDE 40 MG TABLET (FP) PO SCH (10:00)
[2023-02-26 10:56] LABS: BASO % 0.7 % (0-2.0); EOS % 0.6 % (0-4.5); HEMATOCRIT 36.5 % (32.4-45.2); LYMPH % 15.2 % (8-40); MCH 29.2 pg (25.7-33.7); MEAN CELL VOLUME 88.7 fl (80-96); MEAN PLT VOLUME 8.8 fl (7.5-11.1); MONO % 6.3 % (3.8-10.2); NEUT % 77.2 % (42.8-82.8); PLATELET COUNT 116 10^3/uL (134-434); RBC 4.11 M/mm3 (3.60-5.2); RDW 15.7 % (11.6-15.6); WHITE BLOOD COUNT 7.1 K/mm3 (4.0-10.0)
[2023-02-26 11:08] LABS: POTASSIUM 3.9 mmol/L (3.5-5.1)
[2023-02-26 11:11] LABS: CALCIUM 9.2 mg/dL (8.5-10.1)
[2023-02-26 11:12] LABS: BLOOD UREA NITROGEN 28.9 mg/dL (7-18)
[2023-02-26 11:15] LABS: CREATININE 1.4 mg/dL (0.55-1.3)
[2023-02-26] MEDS: COLLAGENASE CLOSTRIDIUM HIST. 30 GRAMS TUBE TP SCH (11:24)
[2023-02-26] MEDS: DOCUSATE SODIUM 100 MG CAPSULE (FP) PO SCH (21:36)
[2023-02-27] MEDS: HEPARIN NA (PORCINE) 5,000 UNITS/ML 1ML VIAL SQ SCH ×3 (07:03→21:11)
[2023-02-27] MEDS: INSULIN SLIDING SCALE (NOVOLOG) 1 VIAL SQ SCH ×7 (07:04→21:12)
[2023-02-27] MEDS ORDERED: FUROSEMIDE 40 MG TABLET (FP) PO SCH (10:00)
[2023-02-27 10:35] LABS: BASO % 0.6 % (0-2.0); EOS % 0.8 % (0-4.5); HEMATOCRIT 39.1 % (32.4-45.2); HEMOGLOBIN 12.8 GM/dL (10.7-15.3); LYMPH % 23.1 % (8-40); MCH 29.2 pg (25.7-33.7); MCHC 32.8 g/dl (32.0-36.0); MEAN PLT VOLUME 8.7 fl (7.5-11.1); MONO % 6.3 % (3.8-10.2); NEUT % 69.2 % (42.8-82.8); PLATELET COUNT 132 10^3/uL (134-434); RBC 4.39 M/mm3 (3.60-5.2); WHITE BLOOD COUNT 8.4 K/mm3 (4.0-10.0)
[2023-02-27] MEDS: PANTOPRAZOLE 40 MG TABLET PO SCH (10:38)
[2023-02-27] MEDS: DIGOXIN 0.125 MG TABLET PO SCH (10:38)
[2023-02-27] MEDS: CYANOCOBALAMIN 1,000 MCG TABLET (FP) PO SCH (10:38)
[2023-02-27] MEDS: FERROUS SO4 325 MG TABLET (FP) PO SCH (10:39)
[2023-02-27] MEDS: COLLAGENASE CLOSTRIDIUM HIST. 30 GRAMS TUBE TP SCH (10:39)
[2023-02-27 11:04] LABS: POTASSIUM 3.9 mmol/L (3.5-5.1)
[2023-02-27 11:08] LABS: BLOOD UREA NITROGEN 32.2 mg/dL (7-18); CALCIUM 9.3 mg/dL (8.5-10.1)
[2023-02-27 11:09] LABS: ALBUMIN 3.8 g/dl (3.4-5.0)
[2023-02-27 11:12] LABS: CREATININE 1.7 mg/dL (0.55-1.3)
[2023-02-27 11:13] LABS: TOT PROT 7.6 g/dl (6.4-8.2)
[2023-02-27] MEDS: CEFTRIAXONE 1 GM in DEXTROSE 5%-WATER - 50 ML IVPB SCH (12:19)
[2023-02-27 20:57] VITALS: RESP 18
[2023-02-27] MEDS: CEPHALEXIN MONOHYDRATE 500 MG CAPSULE (UD) PO SCH (21:11)
[2023-02-27] MEDS: DOCUSATE SODIUM 100 MG CAPSULE (FP) PO SCH (21:12)
[2023-02-28] MEDS: INSULIN SLIDING SCALE (NOVOLOG) 1 VIAL SQ SCH ×4 (06:17→12:28)
[2023-02-28] MEDS: HEPARIN NA (PORCINE) 5,000 UNITS/ML 1ML VIAL SQ SCH (06:18)
[2023-02-28 08:59] LABS: POTASSIUM 3.8 mmol/L (3.5-5.1)
[2023-02-28 09:02] LABS: BASO % 0.6 % (0-2.0); EOS % 1.1 % (0-4.5); HEMATOCRIT 27.2 % (32.4-45.2); HEMOGLOBIN 9.2 GM/dL (10.7-15.3); LYMPH % 20.2 % (8-40); MCH 29.7 pg (25.7-33.7); MCHC 33.7 g/dl (32.0-36.0); MEAN CELL VOLUME 88.1 fl (80-96); MONO % 6.9 % (3.8-10.2); NEUT % 71.2 % (42.8-82.8); PLATELET COUNT 113 10^3/uL (134-434); RBC 3.08 M/mm3 (3.60-5.2); RDW 15.3 % (11.6-15.6); WHITE BLOOD COUNT 6.9 K/mm3 (4.0-10.0)
[2023-02-28 09:05] LABS: BLOOD UREA NITROGEN 28.3 mg/dL (7-18); CALCIUM 9.3 mg/dL (8.5-10.1)
[2023-02-28 09:08] LABS: CREATININE 1.4 mg/dL (0.55-1.3)
[2023-02-28 09:09] LABS: ERYTHROCYTE SEDIMENTATION RATE 74 mm/hr (0-30)
[2023-02-28] MEDS ORDERED: FUROSEMIDE 40 MG TABLET (FP) PO SCH (10:00)
[2023-02-28] MEDS: CYANOCOBALAMIN 1,000 MCG TABLET (FP) PO SCH (10:14)
[2023-02-28] MEDS: PANTOPRAZOLE 40 MG TABLET PO SCH (10:14)
[2023-02-28] MEDS: FERROUS SO4 325 MG TABLET (FP) PO SCH (10:15)
[2023-02-28] MEDS: CEPHALEXIN MONOHYDRATE 500 MG CAPSULE (UD) PO SCH (10:15)
[2023-02-28] MEDS: COLLAGENASE CLOSTRIDIUM HIST. 30 GRAMS TUBE TP SCH (11:00)
[2023-02-28 11:38] VITALS: BP 142/86; PULSE 107; TEMP 98.3
== END 2023-02-28 13:35 | disposition home or self-care (01) | DRG 603 ==
LOC: JER 07:59 → JERBED 12:06 → J5S 15:23
PROVIDERS: ADMIT Internal Medicine; ATTEND Internal Medicine
DX: L03.115 Cellulitis of right lower limb (principal); N17.9 Acute kidney failure, unspecified; I13.0 Hypertensive heart and chronic kidney disease with heart failure and stage 1 through stage 4 chronic kidney disease, or unspecified chronic kidney disease; A46 Erysipelas; E78.5 Hyperlipidemia, unspecified; N32.81 Overactive bladder; I48.91 Unspecified atrial fibrillation; E11.42 Type 2 diabetes mellitus with diabetic polyneuropathy; D50.9 Iron deficiency anemia, unspecified; K80.20 Calculus of gallbladder without cholecystitis without obstruction; K42.9 Umbilical hernia without obstruction or gangrene; F03.90 Unspecified dementia, unspecified severity, without behavioral disturbance, psychotic disturbance, mood disturbance, and anxiety; D69.6 Thrombocytopenia, unspecified; E11.43 Type 2 diabetes mellitus with diabetic autonomic (poly)neuropathy; L08.9 Local infection of the skin and subcutaneous tissue, unspecified; K57.90 Diverticulosis of intestine, part unspecified, without perforation or abscess without bleeding; E11.51 Type 2 diabetes mellitus with diabetic peripheral angiopathy without gangrene; R26.81 Unsteadiness on feet; S81.801A Unspecified open wound, right lower leg, initial encounter; E53.8 Deficiency of other specified B group vitamins; K21.9 Gastro-esophageal reflux disease without esophagitis; E11.22 Type 2 diabetes mellitus with diabetic chronic kidney disease; N18.9 Chronic kidney disease, unspecified; I50.9 Heart failure, unspecified; Z88.0 Allergy status to penicillin
CPT/HCPCS: 0241U-QW; 36415; 73590-TC-LT-FY; 73590-TC-RT-FY; 74176-TC; 80048; 80053; 81003; 82570; 82728; 82803; 82962; 83036; 83540; 83550; 83605; 83690; 84156; 84484; 85025; 85610; 85651; 85730; 86140; 86850; 86900; 86901; 87040; 93005; 93010; 93970-TC; 97116-GP; 97162-GP; 99285-25; J1644; J1756

== ENCOUNTER 2023-10-09 18:30 | Inpatient (IN) | payer OTHER ==
[2023-10-09] MEDS ORDERED: ACETAMINOPHEN 325 MG TABLET (FP) PO PRN (20:27)
[2023-10-09 20:28] LABS: BASO % 0.6 % (0-2.0); EOS % 1.1 % (0-4.5); HEMATOCRIT 34.8 % (32.4-45.2); HEMOGLOBIN 11.3 GM/dL (10.7-15.3); LYMPH % 15.5 % (8-40); MCH 28.4 pg (25.7-33.7); MCHC 32.5 g/dl (32.0-36.0); MEAN CELL VOLUME 87.4 fl (80-96); MEAN PLT VOLUME 8.8 fl (7.5-11.1); MONO % 8.4 % (3.8-10.2); NEUT % 74.4 % (42.8-82.8); PH,URINE 5.5 (5.0-8.0); PLATELET COUNT 171 10^3/uL (134-434); RBC 3.98 M/mm3 (3.60-5.2); RDW 16.5 % (11.6-15.6); URINE APPEARANCE CLEAR; URINE BILIRUBIN NEGATIVE (NEGATIVE); URINE COLOR YELLOW; URINE GLUCOSE (UA) NEGATIVE (NEGATIVE); URINE KETONE NEGATIVE (NEGATIVE); URINE LEUK ESTERASE NEGATIVE (NEGATIVE); URINE NITRITE NEGATIVE (NEGATIVE); URINE PROTEIN TRACE (NEGATIVE); URINE UROBILINOGEN 0.2 mg/dL (0.2-1.0)
[2023-10-09 20:36] LABS: INR 2.47 (0.83-1.09); PROTHROMBIN TIME (PATIENT) 28.4 SEC (9.7-13.0)
[2023-10-09] MEDS ORDERED: VANCOMYCIN 1,000 MG in DEXTROSE 5%-WATER - 250 ML IVPB ONE (20:36)
[2023-10-09 20:42] LABS: POTASSIUM 4.1 mmol/L (3.5-5.1)
[2023-10-09 20:44] LABS: ALBUMIN 3.6 g/dl (3.4-5.0); BLOOD UREA NITROGEN 24.9 mg/dL (7-18); CALCIUM 8.5 mg/dL (8.5-10.1); MAGNESIUM 2.1 mg/dL (1.8-2.4)
[2023-10-09] MEDS: INSULIN ASPART SLIDING SCALE (NOVOLOG) 1 VIAL SQ SCH (20:45)
[2023-10-09 20:47] LABS: CREATININE 1.4 mg/dL (0.55-1.3)
[2023-10-09 20:49] LABS: BILIRUBIN,TOTAL 0.9 mg/dL (0.2-1); PHOSPHOROUS 3.6 mg/dL (2.5-4.9); TOT PROT 7.3 g/dl (6.4-8.2)
[2023-10-09 20:52] LABS: N-TERMINAL BNP 2582.1 pg/ml (5-450)
[2023-10-09] MEDS ORDERED: MELATONIN 5 MG TABLETS PO PRN (20:54)
[2023-10-09] MEDS ORDERED: PANTOPRAZOLE 40 MG TABLET PO ONE (20:58)
[2023-10-09] MEDS ORDERED: DOCUSATE SODIUM 100 MG CAPSULE (FP) PO ONE (20:59)
[2023-10-09] MEDS: DIGOXIN 0.125 MG TABLET PO SCH (21:05)
[2023-10-09] MEDS: PANTOPRAZOLE 40 MG TABLET PO SCH (21:05)
[2023-10-09] MEDS: DOCUSATE SODIUM 100 MG CAPSULE (FP) PO SCH (21:05)
[2023-10-09] MEDS: FUROSEMIDE 40 MG/4 ML INJECTABLE VIAL IVPUSH SCH (21:05)
[2023-10-09] MEDS: SENNOSIDES 8.6MG TABLET (FP) PO SCH (21:05)
[2023-10-09] MEDS ORDERED: VANCOMYCIN 1 GRAM (PRE-DOCKED) 1,000 MG/250 ML BAG IVPB ONE (21:26)
[2023-10-09] MEDS ORDERED: MELATONIN 5 MG TABLETS PO SCH (22:00)
[2023-10-10 05:45] VITALS: BMI 30.2
[2023-10-10] MEDS: INSULIN ASPART SLIDING SCALE (NOVOLOG) 1 VIAL SQ SCH ×3 (06:54→16:43)
[2023-10-10 09:52] LABS: ERYTHROCYTE SEDIMENTATION RATE 43 mm/hr (0-30)
[2023-10-10 10:33] LABS: BLOOD UREA NITROGEN 23.6 mg/dL (7-18); CALCIUM 8.9 mg/dL (8.5-10.1)
[2023-10-10 10:37] LABS: CREATININE 1.4 mg/dL (0.55-1.3)
[2023-10-10] MEDS: FOLIC ACID 1 MG TABLET (FP) PO SCH (10:54)
[2023-10-10] MEDS: metoPROLOL SUCCINATE 25 MG TAB.SR.24H (FP) PO SCH (10:54)
[2023-10-10] MEDS: PANTOPRAZOLE 40 MG TABLET PO SCH (10:54)
[2023-10-10] MEDS: ASCORBIC ACID 500 MG TABLET (FP) PO SCH (10:55)
[2023-10-10] MEDS: POLYETHYLENE GLYCOL (HEALTHYLAX) 3350 17 GM PACKET PO SCH (10:55)
[2023-10-10] MEDS: CEFAZOLIN 1 GM in DEXTROSE 5%-WATER - 50 ML IVPB SCH ×2 (10:55→21:53)
[2023-10-10] MEDS: FUROSEMIDE 40 MG/4 ML INJECTABLE VIAL IVPUSH SCH (10:55)
[2023-10-10] MEDS: CYANOCOBALAMIN 1,000 MCG TABLET (FP) PO SCH (10:55)
[2023-10-10] MEDS ORDERED: INSULIN (NOVOLOG) ASPART 100 UNITS/ML 10ML VIAL ONE (12:36)
[2023-10-10 12:40] LABS: BASO % 0.5 % (0-2.0); EOS % 0.7 % (0-4.5); HEMATOCRIT 33.4 % (32.4-45.2); HEMOGLOBIN 11.2 GM/dL (10.7-15.3); LYMPH % 11.4 % (8-40); MCH 28.7 pg (25.7-33.7); MCHC 33.5 g/dl (32.0-36.0); MEAN CELL VOLUME 85.7 fl (80-96); MEAN PLT VOLUME 8.9 fl (7.5-11.1); MONO % 8.5 % (3.8-10.2); NEUT % 78.9 % (42.8-82.8); PLATELET COUNT 144 10^3/uL (134-434); RDW 16.2 % (11.6-15.6); WHITE BLOOD COUNT 8.2 K/mm3 (4.0-10.0)
[2023-10-10] MEDS: RIVAROXABAN 10 MG TABLET PO SCH (19:35)
[2023-10-10] MEDS: DOCUSATE SODIUM 100 MG CAPSULE (FP) PO SCH (21:53)
[2023-10-10] MEDS: SENNOSIDES 8.6MG TABLET (FP) PO SCH (21:53)
[2023-10-10] MEDS: ATORVASTATIN CA 20 MG TABLET (FP) PO SCH (21:53)
[2023-10-11] MEDS: INSULIN ASPART SLIDING SCALE (NOVOLOG) 1 VIAL SQ SCH ×3 (06:20→17:28)
[2023-10-11] MEDS: FUROSEMIDE 40 MG/4 ML INJECTABLE VIAL IVPUSH SCH (10:00)
[2023-10-11] MEDS: FOLIC ACID 1 MG TABLET (FP) PO SCH (10:00)
[2023-10-11] MEDS: CYANOCOBALAMIN 1,000 MCG TABLET (FP) PO SCH (10:00)
[2023-10-11] MEDS: metoPROLOL SUCCINATE 25 MG TAB.SR.24H (FP) PO SCH (10:00)
[2023-10-11] MEDS: PANTOPRAZOLE 40 MG TABLET PO SCH (10:00)
[2023-10-11] MEDS: ASCORBIC ACID 500 MG TABLET (FP) PO SCH (10:00)
[2023-10-11] MEDS: POLYETHYLENE GLYCOL (HEALTHYLAX) 3350 17 GM PACKET PO SCH ×2 (10:00→10:10)
[2023-10-11] MEDS: CEFAZOLIN 1 GM in DEXTROSE 5%-WATER - 50 ML IVPB SCH ×2 (10:01→21:36)
[2023-10-11 10:24] LABS: BASO % 0.2 % (0-2.0); HEMATOCRIT 35.1 % (32.4-45.2); HEMOGLOBIN 11.8 GM/dL (10.7-15.3); LYMPH % 10.9 % (8-40); MCH 29.3 pg (25.7-33.7); MCHC 33.7 g/dl (32.0-36.0); MEAN CELL VOLUME 86.9 fl (80-96); MEAN PLT VOLUME 8.7 fl (7.5-11.1); MONO % 7.5 % (3.8-10.2); NEUT % 79.4 % (42.8-82.8); PLATELET COUNT 150 10^3/uL (134-434); RBC 4.04 M/mm3 (3.60-5.2); RDW 16.2 % (11.6-15.6); WHITE BLOOD COUNT 8.3 K/mm3 (4.0-10.0)
[2023-10-11 10:31] LABS: POTASSIUM 4.1 mmol/L (3.5-5.1)
[2023-10-11 10:35] LABS: CALCIUM 8.9 mg/dL (8.5-10.1)
[2023-10-11 10:36] LABS: BLOOD UREA NITROGEN 27.2 mg/dL (7-18)
[2023-10-11 10:40] LABS: CREATININE 1.5 mg/dL (0.55-1.3)
[2023-10-11] MEDS ORDERED: INSULIN (NOVOLOG) ASPART 100 UNITS/ML 10ML VIAL ONE (11:28)
[2023-10-11] MEDS: RIVAROXABAN 10 MG TABLET PO SCH (18:57)
[2023-10-11] MEDS: SENNOSIDES 8.6MG TABLET (FP) PO SCH (21:33)
[2023-10-11] MEDS: DIGOXIN 0.125 MG TABLET PO SCH (21:35)
[2023-10-11] MEDS: DOCUSATE SODIUM 100 MG CAPSULE (FP) PO SCH (21:36)
[2023-10-11] MEDS: ATORVASTATIN CA 20 MG TABLET (FP) PO SCH (21:36)
[2023-10-12] MEDS: INSULIN ASPART SLIDING SCALE (NOVOLOG) 1 VIAL SQ SCH ×3 (06:37→16:52)
[2023-10-12 10:22] LABS: BASO % 0.3 % (0-2.0); EOS % 3.8 % (0-4.5); HEMATOCRIT 36.3 % (32.4-45.2); HEMOGLOBIN 11.6 GM/dL (10.7-15.3); LYMPH % 14.7 % (8-40); MCH 28.1 pg (25.7-33.7); MCHC 31.9 g/dl (32.0-36.0); MEAN PLT VOLUME 9.1 fl (7.5-11.1); MONO % 6.5 % (3.8-10.2); NEUT % 74.7 % (42.8-82.8); PLATELET COUNT 148 10^3/uL (134-434); RBC 4.12 M/mm3 (3.60-5.2); WHITE BLOOD COUNT 6.7 K/mm3 (4.0-10.0)
[2023-10-12] MEDS ORDERED: INSULIN (NOVOLOG) ASPART 100 UNITS/ML 10ML VIAL ONE ×2 (10:36→16:47)
[2023-10-12] MEDS: POLYETHYLENE GLYCOL (HEALTHYLAX) 3350 17 GM PACKET PO SCH (10:43)
[2023-10-12] MEDS: metoPROLOL SUCCINATE 25 MG TAB.SR.24H (FP) PO SCH (10:43)
[2023-10-12] MEDS: CEFAZOLIN 1 GM in DEXTROSE 5%-WATER - 50 ML IVPB SCH ×2 (10:43→13:00)
[2023-10-12] MEDS: FOLIC ACID 1 MG TABLET (FP) PO SCH (10:43)
[2023-10-12] MEDS: PANTOPRAZOLE 40 MG TABLET PO SCH (10:43)
[2023-10-12] MEDS: CYANOCOBALAMIN 1,000 MCG TABLET (FP) PO SCH (10:43)
[2023-10-12] MEDS: ASCORBIC ACID 500 MG TABLET (FP) PO SCH (10:43)
[2023-10-12] MEDS: FUROSEMIDE 40 MG/4 ML INJECTABLE VIAL IVPUSH SCH ×2 (10:43→11:11)
[2023-10-12 10:44] LABS: POTASSIUM 4.3 mmol/L (3.5-5.1)
[2023-10-12 10:47] LABS: BLOOD UREA NITROGEN 30.1 mg/dL (7-18); CALCIUM 8.5 mg/dL (8.5-10.1)
[2023-10-12 10:51] LABS: CREATININE 1.6 mg/dL (0.55-1.3)
[2023-10-12] MEDS: FUROSEMIDE 40 MG TABLET (FP) PO SCH (13:42)
[2023-10-12] MEDS: RIVAROXABAN 10 MG TABLET PO SCH (18:44)
[2023-10-12] MEDS: ATORVASTATIN CA 20 MG TABLET (FP) PO SCH (23:03)
[2023-10-12] MEDS: DOCUSATE SODIUM 100 MG CAPSULE (FP) PO SCH (23:03)
[2023-10-12] MEDS: SENNOSIDES 8.6MG TABLET (FP) PO SCH (23:03)
[2023-10-13] MEDS: CEFAZOLIN 1 GM in DEXTROSE 5%-WATER - 50 ML IVPB SCH (00:44)
[2023-10-13] MEDS: CEPHALEXIN MONOHYDRATE 500 MG CAPSULE (UD) PO SCH ×3 (00:46→21:17)
[2023-10-13 09:07] LABS: BASO % 0.5 % (0-2.0); EOS % 4.1 % (0-4.5); HEMATOCRIT 39.9 % (32.4-45.2); HEMOGLOBIN 13.2 GM/dL (10.7-15.3); LYMPH % 23.6 % (8-40); MCH 28.5 pg (25.7-33.7); MCHC 33.1 g/dl (32.0-36.0); MEAN CELL VOLUME 86.4 fl (80-96); MEAN PLT VOLUME 8.7 fl (7.5-11.1); NEUT % 64.8 % (42.8-82.8); PLATELET COUNT 189 10^3/uL (134-434); RBC 4.62 M/mm3 (3.60-5.2); RDW 15.7 % (11.6-15.6); WHITE BLOOD COUNT 9.4 K/mm3 (4.0-10.0)
[2023-10-13 09:29] LABS: POTASSIUM 3.9 mmol/L (3.5-5.1)
[2023-10-13 09:43] LABS: BLOOD UREA NITROGEN 30.7 mg/dL (7-18)
[2023-10-13 09:46] LABS: CREATININE 1.7 mg/dL (0.55-1.3)
[2023-10-13] MEDS: FOLIC ACID 1 MG TABLET (FP) PO SCH (10:19)
[2023-10-13] MEDS: CYANOCOBALAMIN 1,000 MCG TABLET (FP) PO SCH (10:19)
[2023-10-13] MEDS: metoPROLOL SUCCINATE 25 MG TAB.SR.24H (FP) PO SCH (10:19)
[2023-10-13] MEDS: ASCORBIC ACID 500 MG TABLET (FP) PO SCH (10:19)
[2023-10-13] MEDS: FUROSEMIDE 40 MG TABLET (FP) PO SCH ×2 (10:19→10:20)
[2023-10-13] MEDS: PANTOPRAZOLE 40 MG TABLET PO SCH (10:19)
[2023-10-13] MEDS: POLYETHYLENE GLYCOL (HEALTHYLAX) 3350 17 GM PACKET PO SCH (10:20)
[2023-10-13] MEDS: INSULIN ASPART SLIDING SCALE (NOVOLOG) 1 VIAL SQ SCH ×4 (10:20→21:20)
[2023-10-13] MEDS: RIVAROXABAN 10 MG TABLET PO SCH (17:12)
[2023-10-13] MEDS ORDERED: INSULIN (NOVOLOG) ASPART 100 UNITS/ML 10ML VIAL ONE (21:09)
[2023-10-13] MEDS: DIGOXIN 0.125 MG TABLET PO SCH (21:18)
[2023-10-13] MEDS: ATORVASTATIN CA 20 MG TABLET (FP) PO SCH (21:19)
[2023-10-13] MEDS: SENNOSIDES 8.6MG TABLET (FP) PO SCH (21:19)
[2023-10-13] MEDS: DOCUSATE SODIUM 100 MG CAPSULE (FP) PO SCH (21:19)
[2023-10-14] MEDS: INSULIN ASPART SLIDING SCALE (NOVOLOG) 1 VIAL SQ SCH ×5 (07:01→21:34)
[2023-10-14] MEDS: metoPROLOL SUCCINATE 25 MG TAB.SR.24H (FP) PO SCH (09:43)
[2023-10-14] MEDS: FUROSEMIDE 40 MG TABLET (FP) PO SCH (09:43)
[2023-10-14] MEDS: ASCORBIC ACID 500 MG TABLET (FP) PO SCH (09:43)
[2023-10-14] MEDS: CYANOCOBALAMIN 1,000 MCG TABLET (FP) PO SCH (09:43)
[2023-10-14] MEDS: CEPHALEXIN MONOHYDRATE 500 MG CAPSULE (UD) PO SCH ×2 (09:43→21:29)
[2023-10-14] MEDS: FOLIC ACID 1 MG TABLET (FP) PO SCH (09:43)
[2023-10-14] MEDS: POLYETHYLENE GLYCOL (HEALTHYLAX) 3350 17 GM PACKET PO SCH (09:43)
[2023-10-14] MEDS: PANTOPRAZOLE 40 MG TABLET PO SCH (09:43)
[2023-10-14] MEDS: RIVAROXABAN 10 MG TABLET PO SCH (17:41)
[2023-10-14] MEDS ORDERED: INSULIN (NOVOLOG) ASPART 100 UNITS/ML 10ML VIAL ONE (21:19)
[2023-10-14] MEDS: DOCUSATE SODIUM 100 MG CAPSULE (FP) PO SCH (21:29)
[2023-10-14] MEDS: SENNOSIDES 8.6MG TABLET (FP) PO SCH (21:29)
[2023-10-14] MEDS: ATORVASTATIN CA 20 MG TABLET (FP) PO SCH (21:29)
[2023-10-15] MEDS: INSULIN ASPART SLIDING SCALE (NOVOLOG) 1 VIAL SQ SCH ×4 (06:40→21:32)
[2023-10-15] MEDS: ASCORBIC ACID 500 MG TABLET (FP) PO SCH (09:50)
[2023-10-15] MEDS: FUROSEMIDE 40 MG TABLET (FP) PO SCH (09:50)
[2023-10-15] MEDS: CEPHALEXIN MONOHYDRATE 500 MG CAPSULE (UD) PO SCH ×2 (09:50→21:27)
[2023-10-15] MEDS: PANTOPRAZOLE 40 MG TABLET PO SCH (09:50)
[2023-10-15] MEDS: FOLIC ACID 1 MG TABLET (FP) PO SCH (09:50)
[2023-10-15] MEDS: POLYETHYLENE GLYCOL (HEALTHYLAX) 3350 17 GM PACKET PO SCH (09:50)
[2023-10-15] MEDS: metoPROLOL SUCCINATE 25 MG TAB.SR.24H (FP) PO SCH (09:50)
[2023-10-15] MEDS: CYANOCOBALAMIN 1,000 MCG TABLET (FP) PO SCH (09:51)
[2023-10-15] MEDS ORDERED: INSULIN (NOVOLOG) ASPART 100 UNITS/ML 10ML VIAL ONE ×2 (11:12→17:04)
[2023-10-15] MEDS: RIVAROXABAN 10 MG TABLET PO SCH (17:17)
[2023-10-15] MEDS: SENNOSIDES 8.6MG TABLET (FP) PO SCH (21:27)
[2023-10-15] MEDS: DIGOXIN 0.125 MG TABLET PO SCH (21:28)
[2023-10-15] MEDS: DOCUSATE SODIUM 100 MG CAPSULE (FP) PO SCH (21:31)
[2023-10-15] MEDS: ATORVASTATIN CA 20 MG TABLET (FP) PO SCH (21:31)
[2023-10-16] MEDS: INSULIN ASPART SLIDING SCALE (NOVOLOG) 1 VIAL SQ SCH (06:04)
[2023-10-16] MEDS: FOLIC ACID 1 MG TABLET (FP) PO SCH (10:53)
[2023-10-16] MEDS: metoPROLOL SUCCINATE 25 MG TAB.SR.24H (FP) PO SCH (10:53)
[2023-10-16] MEDS: CEPHALEXIN MONOHYDRATE 500 MG CAPSULE (UD) PO SCH (10:53)
[2023-10-16] MEDS: FUROSEMIDE 40 MG TABLET (FP) PO SCH (10:53)
[2023-10-16] MEDS: PANTOPRAZOLE 40 MG TABLET PO SCH (10:53)
[2023-10-16] MEDS: ASCORBIC ACID 500 MG TABLET (FP) PO SCH (10:53)
[2023-10-16] MEDS: CYANOCOBALAMIN 1,000 MCG TABLET (FP) PO SCH (10:53)
[2023-10-16] MEDS: POLYETHYLENE GLYCOL (HEALTHYLAX) 3350 17 GM PACKET PO SCH (10:54)
[2023-10-16 11:12] VITALS: BP 125/89; PULSE 108; RESP 18; TEMP 98.6
== END 2023-10-16 11:50 | disposition home or self-care (01) | DRG 602 ==
LOC: JER 18:30 → JERBED 10-10 03:23 → J7W 10-10 04:35 → OBSVTOIN 10-11 08:34
PROVIDERS: ADMIT Internal Medicine; ATTEND Internal Medicine
DX: L03.116 Cellulitis of left lower limb (principal); I50.33 Acute on chronic diastolic (congestive) heart failure; L97.828 Non-pressure chronic ulcer of other part of left lower leg with other specified severity; L97.818 Non-pressure chronic ulcer of other part of right lower leg with other specified severity; E11.622 Type 2 diabetes mellitus with other skin ulcer; L03.115 Cellulitis of right lower limb; I11.0 Hypertensive heart disease with heart failure; E11.51 Type 2 diabetes mellitus with diabetic peripheral angiopathy without gangrene; E78.5 Hyperlipidemia, unspecified; I48.91 Unspecified atrial fibrillation; E11.42 Type 2 diabetes mellitus with diabetic polyneuropathy; N32.81 Overactive bladder; S81.802A Unspecified open wound, left lower leg, initial encounter; S81.801A Unspecified open wound, right lower leg, initial encounter; G47.00 Insomnia, unspecified; F03.90 Unspecified dementia, unspecified severity, without behavioral disturbance, psychotic disturbance, mood disturbance, and anxiety; E66.9 Obesity, unspecified; Z68.30 Body mass index [BMI] 30.0-30.9, adult; I07.1 Rheumatic tricuspid insufficiency; E11.621 Type 2 diabetes mellitus with foot ulcer; R26.81 Unsteadiness on feet; K59.00 Constipation, unspecified; E53.8 Deficiency of other specified B group vitamins; M62.81 Muscle weakness (generalized); Z88.0 Allergy status to penicillin; B95.61 Methicillin susceptible Staphylococcus aureus infection as the cause of diseases classified elsewhere; X58.XXXA Exposure to other specified factors, initial encounter; Y93.9 Activity, unspecified; Y92.9 Unspecified place or not applicable; Y99.9 Unspecified external cause status
CPT/HCPCS: 0241U-QW; 36415; 71046-TC-FY; 80048; 80053; 80162; 81003; 82962; 83735; 83880; 84100; 84484; 85025; 85610; 85651; 85730; 86140; 86850; 86900; 86901; 87040; 87070; 87086; 87186; 87205; 87635; 93005; 93010; 93970-TC; 97116-GP; 97161-GP; 99285-25; G0378